=== PATIENT | female | born 1965 | race Caucasian/White ===

== ENCOUNTER 2017-06-03 15:00 | Emergency (ER) | payer MEDICAID, OTHER ==
[~2017-06-03] VITALS: Ht 162.6 cm; Wt 64.0 kg
[~2017-06-03 15:00] MED LIST: BENZ1TAB7 PO; CALC-696 PO; CHOL100046 PO; DIVA500T PO; DOCU-138 PO; FOLI-43 PO; HYDR50CA PO; LEVO25TA7 PO; LOPE2CAP PO; MAGN800O PO; PANT40TA4 PO; POLY250017 PO; PRAV10TA35 PO; QUET300T19 PO; TRAZ-129 PO; ZIPR40CA2 PO
[2017-06-03 17:20] VITALS: BP 99/50
== END 2017-06-03 19:43 | disposition home or self-care (01) ==
LOC: ER 15:00
DX: R60.9 Edema, unspecified (principal)
CPT/HCPCS: 93971; 99284

== ENCOUNTER 2018-02-13 12:08 | Emergency (ER) | payer OTHER ==
[~2018-02-13] VITALS: Ht 165.1 cm; Wt 63.0 kg
[~2018-02-13 12:08] MED LIST changes: -LOPE2CAP PO
[2018-02-13 13:49] LABS: CLARITY URINE CLOUDY (CLEAR); COLOR URINE YELLOW (YELLOW); KETONES URINE NEGATIVE (NEGATIVE); LEUKOCYTE ESTERASE URINE 3+ (NEGATIVE); NITRITE URINE POSITIVE (NEGATIVE); OCCULT BLOOD URINE TRACE (NEGATIVE); PH URINE 6.5 (4.5-8.0); PROTEIN URINE NEGATIVE (NEGATIVE); SPECIFIC GRAVITY URINE 1.018 (1.005-1.030); UROBILINOGEN URINE 0.2 E.U./dL (0.2-1.0)
[2018-02-13 14:11] LABS: BASOPHILS % 0.3 % (0.0-2.0); EOSINOPHILS % 0.4 % (0.0-5.0); HEMATOCRIT. 28.7 % (36.0-48.0); HEMOGLOBIN. 9.3 g/dL (12.0-16.0); LYMPHOCYTES % 27.6 % (20.0-50.0); MEAN CORPUSCULAR HEMOGLOBIN 24.9 pg (28.0-32.0); MEAN CORPUSCULAR VOLUME 77.2 fL (81.0-99.0); MEAN PLATELET VOLUME 9.2 fl (7.4-10.4); NEUTROPHILS % 62.7 % (40.0-76.0); PLATELET 216 x1000/uL (130-400); RED BLOOD CELL COUNT 3.72 mill/uL (4.2-5.4); RED CELL DISTRIBUTION WIDTH 15.8 % (11.6-14.6)
[2018-02-13 14:12] LABS: CHLORIDE 96 mEq/L (98-107)
[2018-02-13 14:14] LABS: PROTHROMBIN TIME 10.5 sec (9.4-11.6)
[2018-02-13 14:16] LABS: ETHANOL BLOOD < 10 mg/dL
[2018-02-13 14:16] LABS: *AMPHETAMINES SCREEN URINE NEGATIVE (NEGATIVE); *BARBITURATES SCREEN URINE NEGATIVE (NEGATIVE); *BENZODIAZEPINES SCREEN URINE NEGATIVE (NEGATIVE); *COCAINE SCREEN URINE NEGATIVE (NEGATIVE); METHADONE URINE SCREEN NEGATIVE (NEGATIVE); OPIATES URINE SCREEN NEGATIVE (NEGATIVE)
[2018-02-13 14:18] LABS: PHENCYCLIDINE URINE SCREEN NEGATIVE (NEGATIVE)
[2018-02-13 14:26] LABS: CANNABINOID URINE SCREEN NEGATIVE (NEGATIVE)
[2018-02-13 14:47] VITALS: BP 101/64
== END 2018-02-13 15:01 | disposition home or self-care (01) ==
LOC: ER 13:03
DX: S30.811A Abrasion of abdominal wall, initial encounter (principal); S50.812A Abrasion of left forearm, initial encounter; S50.811A Abrasion of right forearm, initial encounter; F84.0 Autistic disorder; F78 Other intellectual disabilities; N30.00 Acute cystitis without hematuria; Y33.XXXA Other specified events, undetermined intent, initial encounter; Y93.89 Activity, other specified; Y92.89 Other specified places as the place of occurrence of the external cause; Y99.8 Other external cause status; Z98.890 Other specified postprocedural states
CPT/HCPCS: 36415; 80053; 80305; 80307; 80329; 81003; 82962; 85025; 85610; 87077; 87086; 87186; 99284; G0482; Z7610

== ENCOUNTER 2018-02-22 01:15 | Emergency (ER) | payer OTHER ==
[~2018-02-22] VITALS: Ht 167.6 cm; Wt 54.0 kg
[2018-02-22] MEDS ORDERED: LORAZEPAM 2MG/ML CPJ IV ONE (02:45)
[2018-02-22 03:20] LABS: BASOPHILS % 0.2 % (0.0-2.0); EOSINOPHILS % 0.5 % (0.0-5.0); HEMATOCRIT. 30.2 % (36.0-48.0); HEMOGLOBIN. 9.7 g/dL (12.0-16.0); LYMPHOCYTES % 23.4 % (20.0-50.0); MEAN CORPUSCULAR HEMOGLOBIN 24.8 pg (28.0-32.0); MEAN CORPUSCULAR VOLUME 77.3 fL (81.0-99.0); MEAN PLATELET VOLUME 8.6 fl (7.4-10.4); MONOCYTES % 14.3 % (2.0-8.0); NEUTROPHILS % 61.6 % (40.0-76.0); PLATELET 218 x1000/uL (130-400); RED BLOOD CELL COUNT 3.91 mill/uL (4.2-5.4); RED CELL DISTRIBUTION WIDTH 16.1 % (11.6-14.6)
[2018-02-22 03:25] LABS: PROTHROMBIN TIME 10.4 sec (9.4-11.6)
[2018-02-22 03:26] LABS: CHLORIDE 103 mEq/L (98-107)
[2018-02-22 03:33] LABS: ETHANOL BLOOD < 10 mg/dL
[2018-02-22 04:09] LABS: CLARITY URINE CLEAR (CLEAR); COLOR URINE YELLOW (YELLOW); KETONES URINE NEGATIVE (NEGATIVE); LEUKOCYTE ESTERASE URINE NEGATIVE (NEGATIVE); NITRITE URINE NEGATIVE (NEGATIVE); OCCULT BLOOD URINE NEGATIVE (NEGATIVE); PH URINE 7.5 (4.5-8.0); PROTEIN URINE NEGATIVE (NEGATIVE); SPECIFIC GRAVITY URINE 1.013 (1.005-1.030); UROBILINOGEN URINE 0.2 E.U./dL (0.2-1.0)
[2018-02-22 04:18] LABS: *AMPHETAMINES SCREEN URINE NEGATIVE (NEGATIVE); *BARBITURATES SCREEN URINE NEGATIVE (NEGATIVE); *BENZODIAZEPINES SCREEN URINE NEGATIVE (NEGATIVE); *COCAINE SCREEN URINE NEGATIVE (NEGATIVE)
[2018-02-22 04:19] LABS: CANNABINOID URINE SCREEN NEGATIVE (NEGATIVE); METHADONE URINE SCREEN NEGATIVE (NEGATIVE); OPIATES URINE SCREEN NEGATIVE (NEGATIVE); PHENCYCLIDINE URINE SCREEN NEGATIVE (NEGATIVE)
[2018-02-22 17:56] VITALS: BP 102/95
== END 2018-02-22 18:15 | disposition home or self-care (01) ==
LOC: ER 01:15
DX: S50.812A Abrasion of left forearm, initial encounter (principal); S50.811A Abrasion of right forearm, initial encounter; R22.0 Localized swelling, mass and lump, head; F29 Unspecified psychosis not due to a substance or known physiological condition; F84.0 Autistic disorder; F79 Unspecified intellectual disabilities; R00.0 Tachycardia, unspecified; K44.9 Diaphragmatic hernia without obstruction or gangrene; X83.8XXA Intentional self-harm by other specified means, initial encounter; Y92.018 Other place in single-family (private) house as the place of occurrence of the external cause
CPT/HCPCS: 36415; 70450; 71045; 80053; 80305; 80307; 80329; 81003; 85025; 85610; 93005; 96374; 99285; C1893; G0482; J2060; Z7610

== ENCOUNTER 2018-05-02 15:10 | Emergency (ER) | payer OTHER ==
[~2018-05-02] VITALS: Ht 160 cm; Wt 50.0 kg
[2018-05-02] MEDS ORDERED: LORAZEPAM 2MG/ML CPJ IM ONE (18:30)
[2018-05-02 20:33] VITALS: BP 130/70
== END 2018-05-03 08:24 | disposition home or self-care (01) ==
LOC: ER 05-03 07:46
DX: S00.83XA Contusion of other part of head, initial encounter (principal); E03.9 Hypothyroidism, unspecified; F84.0 Autistic disorder; W22.01XA Walked into wall, initial encounter; Y93.89 Activity, other specified; Y92.018 Other place in single-family (private) house as the place of occurrence of the external cause
CPT/HCPCS: 70450; 96372; 99284; J2060

== ENCOUNTER 2018-05-12 16:06 | Emergency (ER) | payer OTHER ==
[~2018-05-12] VITALS: Ht 152.4 cm; Wt 54.0 kg
[~2018-05-12 16:06] MED LIST changes: +DIVA-75 PO; -DIVA500T PO; -TRAZ-129 PO; +TRAZ-212 PO
[2018-05-12 21:46] VITALS: BP 112/60
== END 2018-05-12 21:56 | disposition home or self-care (01) ==
LOC: ER 16:06
DX: S00.83XA Contusion of other part of head, initial encounter (principal); S00.03XA Contusion of scalp, initial encounter; W06.XXXA Fall from bed, initial encounter; Y93.89 Activity, other specified; Y92.9 Unspecified place or not applicable; E03.9 Hypothyroidism, unspecified
CPT/HCPCS: 70450; 70486; 99284

== ENCOUNTER 2019-07-14 10:07 | Emergency (ER) | payer MEDICAID, OTHER ==
[~2019-07-14] VITALS: Ht 152.4 cm; Wt 41.0 kg
[~2019-07-14 10:07] MED LIST changes: -TRAZ-212 PO; +TRAZ-251 PO
[2019-07-14 11:21] LABS: PROTHROMBIN TIME 10.2 sec (9.6-11.0)
[2019-07-14 11:22] LABS: CHLORIDE 96 mEq/L (98-107)
[2019-07-14 11:23] LABS: BASOPHILS % 0.2 % (0.0-2.0); EOSINOPHILS % 0.8 % (0.0-5.0); HEMATOCRIT. 39.3 % (36.0-48.0); HEMOGLOBIN. 12.9 g/dL (12.0-16.0); LYMPHOCYTES % 38.9 % (20.0-50.0); MEAN CORPUSCULAR HEMOGLOBIN 26.3 pg (28.0-32.0); MONOCYTES % 10.7 % (2.0-8.0); NEUTROPHILS % 49.4 % (40.0-76.0); RED BLOOD CELL COUNT 4.92 mill/uL (4.2-5.4); RED CELL DISTRIBUTION WIDTH 30.9 % (11.6-14.6)
[2019-07-14 11:43] LABS: MEAN PLATELET VOLUME 9.8 fl (7.4-10.4); PLATELET 95 x1000/uL (130-400)
[2019-07-14] MEDS ORDERED: SODIUM CHLORIDE 0.9% 1,000 ML IV ONE (12:45)
[2019-07-14 13:03] LABS: CLARITY URINE CLEAR (CLEAR); COLOR URINE YELLOW (YELLOW); KETONES URINE NEGATIVE (NEGATIVE); LEUKOCYTE ESTERASE URINE NEGATIVE (NEGATIVE); NITRITE URINE NEGATIVE (NEGATIVE); OCCULT BLOOD URINE NEGATIVE (NEGATIVE); PH URINE >=9.0 (4.5-8.0); PROTEIN URINE NEGATIVE (NEGATIVE); SPECIFIC GRAVITY URINE 1.008 (1.005-1.030); UROBILINOGEN URINE 0.2 E.U./dL (0.2-1.0)
[2019-07-14 13:45] VITALS: BP 125/69
[2019-07-25] MEDS ORDERED: DIVA500T51 PO (19:16)
[2019-07-25] MEDS ORDERED: LORA1TAB PO (19:16)
[2019-07-25] MEDS ORDERED: DIVA250T45 PO (19:16)
[2019-07-25] MEDS ORDERED: OMEP20CA5 PO (19:16)
[2019-07-25] MEDS ORDERED: HYDR-3992 PO (19:16)
[2019-07-25] MEDS ORDERED: ONDA4TAB50 PO (19:16)
[2019-07-25] MEDS ORDERED: DOCU-272 PO (19:16)
[2019-07-25] MEDS ORDERED: LOPE2CAP PO (19:16)
[2019-07-25] MEDS ORDERED: QUET25TA34 PO (19:16)
[2019-07-25] MEDS ORDERED: CARI4.5C PO (19:16)
== END 2019-07-14 13:50 | disposition home or self-care (01) ==
LOC: ER 10:07
DX: R14.0 Abdominal distension (gaseous) (principal); E86.0 Dehydration; E87.1 Hypo-osmolality and hyponatremia; E03.9 Hypothyroidism, unspecified; R62.50 Unspecified lack of expected normal physiological development in childhood; G83.9 Paralytic syndrome, unspecified; M41.9 Scoliosis, unspecified; F84.0 Autistic disorder; Z99.3 Dependence on wheelchair; Z74.01 Bed confinement status
CPT/HCPCS: 36415; 81003; 81025; 99283

== ENCOUNTER → 2019-07-26 | Day surgery (SDC) | payer MEDICAID ==
[~2019-07-26] VITALS: Ht 154.9 cm; Wt 54.4 kg
[~2019-07-26] MED LIST changes: +CARI4.5C PO; -DIVA-75 PO; +DIVA250T45 PO; +DIVA500T51 PO; -DOCU-138 PO; +DOCU-272 PO; +HYDR-3992 PO; +LIDOCAINE HCL/PF 1% 10 MG/ML 5ML VIAL ONE; +LOPE2CAP PO; +LORA1TAB PO; +OMEP20CA5 PO; +ONDA4TAB50 PO; +PROPOFOL 200MG/20ML VIAL IV ONE; +QUET25TA34 PO; -ZIPR40CA2 PO
[2019-07-26 11:54] LABS: BASOPHILS % 0.3 % (0.0-2.0); EOSINOPHILS % 0.9 % (0.0-5.0); HEMATOCRIT. 40.2 % (36.0-48.0); HEMOGLOBIN. 13.4 g/dL (12.0-16.0); LYMPHOCYTES % 39.2 % (20.0-50.0); MEAN CORPUSCULAR HEMOGLOBIN 27.6 pg (28.0-32.0); MEAN CORPUSCULAR VOLUME 82.9 fL (81.0-99.0); MEAN PLATELET VOLUME 9.4 fl (7.4-10.4); MONOCYTES % 11.1 % (2.0-8.0); NEUTROPHILS % 48.5 % (40.0-76.0); PLATELET 113 x1000/uL (130-400); RED BLOOD CELL COUNT 4.85 mill/uL (4.2-5.4); RED CELL DISTRIBUTION WIDTH 26.2 % (11.6-14.6)
[2019-07-26 12:08] LABS: CHLORIDE 96 mEq/L (98-107)
== END | disposition home or self-care (01) ==
LOC: OR 09:24
PROVIDERS: ATTEND Internal Medicine Gastroenterology
DX: D50.9 Iron deficiency anemia, unspecified (principal); K29.50 Unspecified chronic gastritis without bleeding; K44.9 Diaphragmatic hernia without obstruction or gangrene; K22.10 Ulcer of esophagus without bleeding; M40.294 Other kyphosis, thoracic region; E03.9 Hypothyroidism, unspecified; Z79.899 Other long term (current) drug therapy; Z98.890 Other specified postprocedural states
CPT/HCPCS: 36415; 43239; 71045; 80048; 85025; 88305; 88313; 93005; J2704; J3490

== ENCOUNTER 2020-09-26 17:54 | Emergency (ER) | payer MEDICAID ==
[~2020-09-26] VITALS: Ht 167.6 cm; Wt 69.0 kg
[~2020-09-26 17:54] MED LIST changes: -LIDOCAINE HCL/PF 1% 10 MG/ML 5ML VIAL ONE; +OMEP20CA14 PO; -OMEP20CA5 PO; -PROPOFOL 200MG/20ML VIAL IV ONE
[2020-09-26 18:13] VITALS: BP 131/79
[2020-09-26] MEDS ORDERED: BACITRACIN ZINC OINT UDPKT TOP ONE (20:15)
== END 2020-09-26 22:54 | disposition home or self-care (01) ==
LOC: ER 17:54
DX: S00.83XA Contusion of other part of head, initial encounter (principal); S00.01XA Abrasion of scalp, initial encounter; F79 Unspecified intellectual disabilities; E03.9 Hypothyroidism, unspecified; R47.01 Aphasia; W05.0XXA Fall from non-moving wheelchair, initial encounter; Y93.89 Activity, other specified; Y92.018 Other place in single-family (private) house as the place of occurrence of the external cause
CPT/HCPCS: 99285

== ENCOUNTER 2020-11-19 19:06 | Emergency (ER) | payer MEDICAID ==
[~2020-11-19] VITALS: Ht 154.9 cm; Wt 46.0 kg
[~2020-11-19 19:06] MED LIST changes: -PANT40TA4 PO; +PANT40TA51 PO
[2020-11-19 19:27] VITALS: BP 105/62
[2020-11-19] MEDS ORDERED: ONDANSETRON HCL 4MG/2ML INJ IV STA (20:16)
[2020-11-19] MEDS ORDERED: SODIUM CHLORIDE 0.9% 1,000 ML IV ONE (20:30)
[2020-11-19 21:03] LABS: BASOPHILS % 0.4 % (0.0-2.0); EOSINOPHILS % 1.2 % (0.0-5.0); HEMOGLOBIN. 11.2 g/dL (12.0-16.0); MEAN PLATELET VOLUME 10.3 fl (7.4-10.4); MONOCYTES % 11.5 % (2.0-8.0); NEUTROPHILS % 38.9 % (40.0-76.0); PLATELET 239 x1000/uL (130-400); RED CELL DISTRIBUTION WIDTH 16.8 % (11.6-14.6)
[2020-11-19 21:07] LABS: CHLORIDE 104 mEq/L (98-107)
[2020-11-19] MEDS ORDERED: MAGNESIUM CITRATE 300ML SOLUTION PO ONE (21:30)
[2020-11-19] MEDS ORDERED: NA P133E8 RC (22:10)
[2020-11-19] MEDS ORDERED: BISA10SU62 RC (22:11)
[2020-11-19] MEDS ORDERED: NA PHOS,M-B/NA PHOS,DI-BA ENEMA 118ML PR NR (22:30)
[2020-11-23] MEDS ORDERED: LACT10SO MT (00:47)
== END 2020-11-19 23:08 | disposition home or self-care (01) ==
LOC: ER 19:06
DX: K59.00 Constipation, unspecified (principal); M41.9 Scoliosis, unspecified; F79 Unspecified intellectual disabilities; F84.0 Autistic disorder; E03.9 Hypothyroidism, unspecified; Z87.19 Personal history of other diseases of the digestive system
CPT/HCPCS: 36415; 74018; 80053; 83690; 85025; 96361; 96374; 99284; J2405; J7030; Z7610

== ENCOUNTER 2020-11-22 20:03 | Emergency (ER) | payer MEDICAID ==
[~2020-11-22] VITALS: Ht 142.2 cm; Wt 43.0 kg
[~2020-11-22 20:03] MED LIST changes: +BISA10SU62 RC; +NA P133E8 RC
[2020-11-22] MEDS ORDERED: ONDANSETRON HCL 4MG/2ML INJ IV STA (21:40)
[2020-11-22] MEDS ORDERED: SODIUM CHLORIDE 0.9% 1,000 ML IV ONE (21:45)
[2020-11-22 22:33] LABS: BASOPHILS % 0.5 % (0.0-2.0); EOSINOPHILS % 0.8 % (0.0-5.0); HEMATOCRIT. 36.8 % (36.0-48.0); HEMOGLOBIN. 11.8 g/dL (12.0-16.0); LYMPHOCYTES % 29.5 % (20.0-50.0); MEAN CORPUSCULAR HEMOGLOBIN 25.3 pg (28.0-32.0); MEAN CORPUSCULAR VOLUME 78.9 fL (81.0-99.0); MEAN PLATELET VOLUME 10.3 fl (7.4-10.4); MONOCYTES % 8.7 % (2.0-8.0); NEUTROPHILS % 60.5 % (40.0-76.0); PLATELET 231 x1000/uL (130-400); RED BLOOD CELL COUNT 4.66 mill/uL (4.2-5.4); RED CELL DISTRIBUTION WIDTH 17.1 % (11.6-14.6)
[2020-11-22 22:36] LABS: CHLORIDE 101 mEq/L (98-107)
[2020-11-22 22:39] LABS: PROTHROMBIN TIME 10.4 sec (9.6-11.0)
[2020-11-22] MEDS ORDERED: IOHEXOL-300 100 ML BOTTLE ONE (23:26)
[2020-11-23] MEDS ORDERED: PANTOPRAZOLE SODIUM 40 MG/VIAL IV ONE (00:45)
[2020-11-23] MEDS ORDERED: PROT40 MT (00:46)
[2020-11-23] MEDS ORDERED: LACT10SO3 MT (00:47)
[2020-11-23] MEDS ORDERED: LACTULOSE 20G/30ML UDC PO NR (01:00)
[2020-11-23 01:45] LABS: CLARITY URINE CLEAR (CLEAR); COLOR URINE YELLOW (YELLOW); KETONES URINE 1+ (NEGATIVE); LEUKOCYTE ESTERASE URINE NEGATIVE (NEGATIVE); NITRITE URINE NEGATIVE (NEGATIVE); OCCULT BLOOD URINE 1+ (NEGATIVE); PROTEIN URINE NEGATIVE (NEGATIVE); SPECIFIC GRAVITY URINE 1.037 (1.005-1.030); UROBILINOGEN URINE 0.2 E.U./dL (0.2-1.0)
[2020-11-23 02:17] VITALS: BP 131/45
== END 2020-11-23 02:18 | disposition home or self-care (01) ==
LOC: ER 20:03
DX: K29.70 Gastritis, unspecified, without bleeding (principal); R11.2 Nausea with vomiting, unspecified; Z87.01 Personal history of pneumonia (recurrent); E03.9 Hypothyroidism, unspecified; Z79.899 Other long term (current) drug therapy
CPT/HCPCS: 36415; 74177; 80053; 81003; 83690; 85025; 85610; 96361; 96374; 96375; 99285; C9113; J2405; J7030; Q9967

== ENCOUNTER 2020-11-25 16:13 | Inpatient (IN) | payer MEDICAID, OTHER ==
[~2020-11-25] VITALS: Ht 157.5 cm; Wt 48.5 kg
[~2020-11-25 16:13] MED LIST changes: +LACT10SO3 MT; +PROT40 MT
[2020-11-25 18:25] LABS: BASOPHILS % 0.4 % (0.0-2.0); EOSINOPHILS % 0.1 % (0.0-5.0); HEMATOCRIT. 40.6 % (36.0-48.0); HEMOGLOBIN. 12.7 g/dL (12.0-16.0); LYMPHOCYTES % 16.7 % (20.0-50.0); MEAN CORPUSCULAR HEMOGLOBIN 25.1 pg (28.0-32.0); MEAN CORPUSCULAR VOLUME 80.1 fL (81.0-99.0); MEAN PLATELET VOLUME 11.1 fl (7.4-10.4); MONOCYTES % 6.9 % (2.0-8.0); NEUTROPHILS % 75.9 % (40.0-76.0); PLATELET 246 x1000/uL (130-400); RED BLOOD CELL COUNT 5.06 mill/uL (4.2-5.4)
[2020-11-25 18:34] LABS: PROTHROMBIN TIME 10.6 sec (9.6-11.0)
[2020-11-25 18:35] LABS: CHLORIDE 102 mEq/L (98-107)
[2020-11-25 22:59] LABS: CLARITY URINE CLEAR (CLEAR); COLOR URINE YELLOW (YELLOW); KETONES URINE 4+ (NEGATIVE); LEUKOCYTE ESTERASE URINE TRACE (NEGATIVE); NITRITE URINE NEGATIVE (NEGATIVE); OCCULT BLOOD URINE NEGATIVE (NEGATIVE); PH URINE 5.5 (4.5-8.0); PROTEIN URINE NEGATIVE (NEGATIVE); SPECIFIC GRAVITY URINE 1.039 (1.005-1.030); UROBILINOGEN URINE 0.2 E.U./dL (0.2-1.0)
[2020-11-25] MEDS ORDERED: LACTULOSE 20G/30ML UDC PO ONE (23:15)
[2020-11-25] MEDS ORDERED: LACTULOSE 300 ML in WATER FOR IRRIGATION,STERILE 700 ML IR ONE (23:15)
[2020-11-26] MEDS: ONDANSETRON HCL 4MG/2ML INJ IV PRN ×2 (02:50→11:15)
[2020-11-26] MEDS ORDERED: BISACODYL 10MG SUPP PR ONE (08:30)
[2020-11-26] MEDS ORDERED: ACETAMINOPHEN 325MG TABLET PO PRN (08:30)
[2020-11-26] MEDS ORDERED: PANTOPRAZOLE SODIUM 40 MG/VIAL IV SCH (09:00)
[2020-11-26] MEDS: DEXT 5%/0.9% NACL 1,000 ML IV SCH (17:16)
[2020-11-26 20:35] VITALS: BP 119/79
[2020-11-26] MEDS: SENNOSIDES/DOCUSATE SOD 8.6/50MG TABLET PO SCH (21:00)
[2020-11-26] MEDS: PANTOPRAZOLE SODIUM 40 MG/VIAL IV SCH (21:00)
[2020-11-26] MEDS ORDERED: NA PHOS,M-B/NA PHOS,DI-BA ENEMA 118ML PR NR (21:00)
[2020-11-26] MEDS: TRAZODONE HCL 50MG TABLET PO SCH (23:30)
[2020-11-26] MEDS: QUETIAPINE FUMARATE 50MG TABLET PO SCH (23:30)
[2020-11-26] MEDS: VALPROIC ACID 250MG CAPSULE PO SCH (23:45)
[2020-11-26] MEDS: METOCLOPRAMIDE HCL 10MG/2ML VIAL IV SCH (23:55)
[2020-11-27 04:23] VITALS: BP 119/79
[2020-11-27] MEDS: METOCLOPRAMIDE HCL 10MG/2ML VIAL IV SCH ×2 (06:00→12:00)
[2020-11-27 07:48] LABS: PROTHROMBIN TIME 10.9 sec (9.6-11.0)
[2020-11-27 07:49] LABS: BASOPHILS % 0.1 % (0.0-2.0); EOSINOPHILS % 0.1 % (0.0-5.0); HEMATOCRIT. 40.5 % (36.0-48.0); HEMOGLOBIN. 12.5 g/dL (12.0-16.0); LYMPHOCYTES % 10.6 % (20.0-50.0); MEAN CORPUSCULAR HEMOGLOBIN 24.5 pg (28.0-32.0); MEAN CORPUSCULAR VOLUME 79.6 fL (81.0-99.0); MEAN PLATELET VOLUME 11.1 fl (7.4-10.4); MONOCYTES % 7.6 % (2.0-8.0); NEUTROPHILS % 81.6 % (40.0-76.0); PLATELET 236 x1000/uL (130-400); RED BLOOD CELL COUNT 5.09 mill/uL (4.2-5.4); RED CELL DISTRIBUTION WIDTH 16.6 % (11.6-14.6)
[2020-11-27 07:59] LABS: CHLORIDE 107 mEq/L (98-107)
[2020-11-27 08:00] VITALS: BP 112/73
[2020-11-27] MEDS: BENZTROPINE MESYLATE 1MG TABLET PO SCH ×2 (08:00→16:37)
[2020-11-27] MEDS: QUETIAPINE FUMARATE 50MG TABLET PO SCH ×4 (08:00→22:13)
[2020-11-27] MEDS: PANTOPRAZOLE SODIUM 40 MG/VIAL IV SCH ×2 (09:22→22:29)
[2020-11-27] MEDS: LEVOTHYROXINE SODIUM 25MCG TABLET PO SCH (09:22)
[2020-11-27] MEDS: DOCUSATE SODIUM 250MG CAPSULE PO SCH (09:22)
[2020-11-27] MEDS: BISACODYL 5MG TABLET PO SCH (09:22)
[2020-11-27 12:00] VITALS: BP 126/70
[2020-11-27] MEDS ORDERED: LIDOCAINE HCL 1% 20ML VIAL (Pyxis) INJ ONE (12:17)
[2020-11-27] MEDS ORDERED: SODIUM BICARBONATE 4% (2.4MEQ) 5ML VIAL IV ONE (12:17)
[2020-11-27 16:00] VITALS: BP 124/80
[2020-11-27 20:00] VITALS: BP 134/82
[2020-11-27] MEDS: SENNOSIDES/DOCUSATE SOD 8.6/50MG TABLET PO SCH (22:09)
[2020-11-27] MEDS: TRAZODONE HCL 50MG TABLET PO SCH (22:09)
[2020-11-27] MEDS: VALPROIC ACID 250MG CAPSULE PO SCH (22:10)
[2020-11-28] VITALS: BP 117/81
[2020-11-28 04:00] VITALS: BP 97/70
[2020-11-28 04:54] LABS: BASOPHILS % 0.3 % (0.0-2.0); EOSINOPHILS % 0.6 % (0.0-5.0); HEMATOCRIT. 36.6 % (36.0-48.0); HEMOGLOBIN. 11.2 g/dL (12.0-16.0); LYMPHOCYTES % 22.8 % (20.0-50.0); MEAN CORPUSCULAR HEMOGLOBIN 24.1 pg (28.0-32.0); MEAN CORPUSCULAR VOLUME 78.6 fL (81.0-99.0); NEUTROPHILS % 65.3 % (40.0-76.0); PLATELET 186 x1000/uL (130-400); RED BLOOD CELL COUNT 4.66 mill/uL (4.2-5.4); RED CELL DISTRIBUTION WIDTH 16.7 % (11.6-14.6)
[2020-11-28 04:59] LABS: PROTHROMBIN TIME 11.2 sec (9.6-11.0)
[2020-11-28 05:05] LABS: CHLORIDE 109 mEq/L (98-107)
[2020-11-28 08:00] VITALS: BP 133/79
[2020-11-28] MEDS: BISACODYL 10MG SUPP PR PRN (08:59)
[2020-11-28] MEDS: LEVOTHYROXINE SODIUM 25MCG TABLET PO SCH (08:59)
[2020-11-28] MEDS: DOCUSATE SODIUM 250MG CAPSULE PO SCH (08:59)
[2020-11-28] MEDS: QUETIAPINE FUMARATE 50MG TABLET PO SCH ×4 (08:59→20:55)
[2020-11-28] MEDS: DEXT 5%/0.9% NACL 1,000 ML IV SCH ×2 (09:00→17:39)
[2020-11-28] MEDS: BENZTROPINE MESYLATE 1MG TABLET PO SCH ×2 (09:00→16:00)
[2020-11-28] MEDS: BISACODYL 5MG TABLET PO SCH (09:05)
[2020-11-28] MEDS: PANTOPRAZOLE SODIUM 40 MG/VIAL IV SCH ×2 (09:05→20:55)
[2020-11-28] MEDS ORDERED: POTASSIUM CHLORIDE INJ 40 MEQ in DEXT 5% WATER 500 ML IV SCH (10:00)
[2020-11-28 12:00] VITALS: BP 133/80
[2020-11-28 16:00] VITALS: BP 122/70
[2020-11-28] MEDS ORDERED: MIDAZOLAM HCL 5 MG/5 ML VIAL IV PRN (17:41)
[2020-11-28] MEDS ORDERED: FENTANYL CITRATE/PF 50MCG/ML 2ML VIAL ONE (17:45)
[2020-11-28] MEDS ORDERED: MIDAZOLAM HCL 5 MG/5 ML VIAL ONE (17:45)
[2020-11-28 20:00] VITALS: BP 115/69
[2020-11-28] MEDS: SENNOSIDES/DOCUSATE SOD 8.6/50MG TABLET PO SCH (20:55)
[2020-11-28] MEDS: TRAZODONE HCL 50MG TABLET PO SCH (20:55)
[2020-11-28] MEDS: METOCLOPRAMIDE HCL 10MG/2ML VIAL IV SCH (20:55)
[2020-11-28] MEDS: VALPROIC ACID 250MG CAPSULE PO SCH (20:56)
[2020-11-29] VITALS: BP 119/77
[2020-11-29] MEDS: METOCLOPRAMIDE HCL 10MG/2ML VIAL IV SCH ×4 (00:52→17:53)
[2020-11-29 04:00] VITALS: BP 136/68
[2020-11-29] MEDS: DEXT 5%/0.9% NACL 1,000 ML IV SCH ×2 (04:54→14:30)
[2020-11-29] MEDS: LEVOTHYROXINE SODIUM 25MCG TABLET PO SCH (06:38)
[2020-11-29 08:00] VITALS: BP 120/76
[2020-11-29] MEDS: QUETIAPINE FUMARATE 50MG TABLET PO SCH ×4 (08:00→23:29)
[2020-11-29] MEDS: BENZTROPINE MESYLATE 1MG TABLET PO SCH ×2 (08:00→16:00)
[2020-11-29] MEDS: BISACODYL 5MG TABLET PO SCH (09:00)
[2020-11-29] MEDS: DOCUSATE SODIUM 250MG CAPSULE PO SCH (09:00)
[2020-11-29] MEDS: PANTOPRAZOLE SODIUM 40 MG/VIAL IV SCH ×2 (09:31→23:28)
[2020-11-29 12:00] VITALS: BP 132/74
[2020-11-29 16:00] VITALS: BP 126/74
[2020-11-29 20:00] VITALS: BP 121/63
[2020-11-29 20:50] LABS: BASOPHILS % 0.3 % (0.0-2.0); EOSINOPHILS % 1.6 % (0.0-5.0); HEMATOCRIT. 31.9 % (36.0-48.0); HEMOGLOBIN. 9.9 g/dL (12.0-16.0); LYMPHOCYTES % 38.7 % (20.0-50.0); MEAN CORPUSCULAR HEMOGLOBIN 24.4 pg (28.0-32.0); MEAN CORPUSCULAR VOLUME 78.8 fL (81.0-99.0); MEAN PLATELET VOLUME 11.6 fl (7.4-10.4); MONOCYTES % 10.8 % (2.0-8.0); NEUTROPHILS % 48.6 % (40.0-76.0); PLATELET 144 x1000/uL (130-400); RED BLOOD CELL COUNT 4.05 mill/uL (4.2-5.4); RED CELL DISTRIBUTION WIDTH 16.8 % (11.6-14.6)
[2020-11-29] MEDS: SENNOSIDES/DOCUSATE SOD 8.6/50MG TABLET PO SCH (21:00)
[2020-11-29 21:02] LABS: CHLORIDE 109 mEq/L (98-107)
[2020-11-29] MEDS: TRAZODONE HCL 50MG TABLET PO SCH (23:28)
[2020-11-29] MEDS: VALPROIC ACID 250MG CAPSULE PO SCH (23:28)
[2020-11-30] VITALS: BP 130/80
[2020-11-30] MEDS: METOCLOPRAMIDE HCL 10MG/2ML VIAL IV SCH ×4 (01:01→18:05)
[2020-11-30] MEDS: DEXT 5%/0.9% NACL 1,000 ML IV SCH ×2 (01:02→10:14)
[2020-11-30] MEDS ORDERED: POTASSIUM CHLORIDE INJ 40 MEQ in DEXT 5% WATER 500 ML IV SCH (03:00)
[2020-11-30 04:00] VITALS: BP 131/72
[2020-11-30] MEDS: LEVOTHYROXINE SODIUM 25MCG TABLET PO SCH (07:00)
[2020-11-30 08:00] VITALS: BP 127/73
[2020-11-30] MEDS: QUETIAPINE FUMARATE 50MG TABLET PO SCH ×4 (08:00→20:00)
[2020-11-30] MEDS: BENZTROPINE MESYLATE 1MG TABLET PO SCH ×2 (08:00→16:00)
[2020-11-30] MEDS: DOCUSATE SODIUM 250MG CAPSULE PO SCH (09:00)
[2020-11-30] MEDS: BISACODYL 5MG TABLET PO SCH (09:00)
[2020-11-30] MEDS: BISACODYL 10MG SUPP PR PRN (09:25)
[2020-11-30] MEDS: PANTOPRAZOLE SODIUM 40 MG/VIAL IV SCH ×2 (09:25→22:21)
[2020-11-30 12:00] VITALS: BP 156/80
[2020-11-30 16:00] VITALS: BP 135/75
[2020-11-30] MEDS: VALPROIC ACID 250MG CAPSULE PO SCH (20:00)
[2020-11-30] MEDS: TRAZODONE HCL 50MG TABLET PO SCH (20:00)
[2020-11-30] MEDS: SENNOSIDES/DOCUSATE SOD 8.6/50MG TABLET PO SCH (21:00)
[2020-11-30] MEDS: DEXT 5%/0.45% NACL KCL 20MEQ/L 1,000 ML IV SCH (22:21)
[2020-12-01 04:00] VITALS: BP 145/70
[2020-12-01] MEDS: METOCLOPRAMIDE HCL 10MG/2ML VIAL IV SCH ×3 (05:19→17:46)
[2020-12-01] MEDS: DEXT 5%/0.45% NACL KCL 20MEQ/L 1,000 ML IV SCH ×3 (05:19→21:57)
[2020-12-01] MEDS ORDERED: LIDOCAINE HCL 1% 20ML VIAL (Pyxis) INJ ONE (06:51)
[2020-12-01] MEDS ORDERED: BUPIVACAINE HCL/PF 0.5% (5MG/ML) 10ML ONE ×2 (06:51→06:52)
[2020-12-01] MEDS ORDERED: BACITRACIN 50,000 UNITS/VIAL ONE (06:52)
[2020-12-01] MEDS: LEVOTHYROXINE SODIUM 25MCG TABLET PO SCH (07:00)
[2020-12-01 07:31] LABS: CHLORIDE 103 mEq/L (98-107)
[2020-12-01 07:40] LABS: BASOPHILS % 0.2 % (0.0-2.0); EOSINOPHILS % 1.5 % (0.0-5.0); HEMATOCRIT. 39.4 % (36.0-48.0); HEMOGLOBIN. 12.5 g/dL (12.0-16.0); LYMPHOCYTES % 32.4 % (20.0-50.0); MEAN CORPUSCULAR HEMOGLOBIN 24.8 pg (28.0-32.0); MEAN CORPUSCULAR VOLUME 78.1 fL (81.0-99.0); MEAN PLATELET VOLUME 11.2 fl (7.4-10.4); MONOCYTES % 12.3 % (2.0-8.0); NEUTROPHILS % 53.6 % (40.0-76.0); PLATELET 163 x1000/uL (130-400); RED BLOOD CELL COUNT 5.05 mill/uL (4.2-5.4); RED CELL DISTRIBUTION WIDTH 16.6 % (11.6-14.6)
[2020-12-01] MEDS: BENZTROPINE MESYLATE 1MG TABLET PO SCH ×2 (08:00→16:00)
[2020-12-01] MEDS: QUETIAPINE FUMARATE 50MG TABLET PO SCH ×5 (08:00→20:00)
[2020-12-01] MEDS ORDERED: PROPOFOL 200MG/20ML VIAL IV ONE (08:33)
[2020-12-01] MEDS ORDERED: HYDROMORPHONE HCL/PF 2MG/ML (OR) ONE (08:46)
[2020-12-01] MEDS ORDERED: GLYCOPYRROLATE 0.2 MG/ML 2ML VIAL ONE (08:57)
[2020-12-01] MEDS: BISACODYL 5MG TABLET PO SCH (09:00)
[2020-12-01] MEDS: PANTOPRAZOLE SODIUM 40 MG/VIAL IV SCH ×2 (09:00→21:59)
[2020-12-01] MEDS: DOCUSATE SODIUM 250MG CAPSULE PO SCH (09:00)
[2020-12-01] MEDS ORDERED: ALBUMIN HUMAN 12.5GM/50ML (25%) IV ONE (09:06)
[2020-12-01] MEDS ORDERED: ONDANSETRON HCL 4MG/2ML INJ IV PRN (10:30)
[2020-12-01] MEDS ORDERED: LABETALOL 5MG/ML SYR 20 MG/4 ML SYRINGE IV PRN (10:30)
[2020-12-01] MEDS ORDERED: MEPERIDINE HCL/PF 25MG/ML CPJ IV PRN (10:30)
[2020-12-01] MEDS ORDERED: KCL 20MEQ/100ML PREMIX 100 ML IV ONE (11:00)
[2020-12-01 12:00] VITALS: BP 139/83
[2020-12-01] MEDS: MORPHINE SULFATE 4 MG/ML CPJ (NOT FOR IM USE) IV PRN ×2 (12:55→22:09)
[2020-12-01 16:00] VITALS: BP 143/90
[2020-12-01] MEDS ORDERED: MORPHINE SULFATE 2 MG/ML CPJ (NOT FOR IM USE) IV ONE (18:00)
[2020-12-01 20:00] VITALS: BP 131/89
[2020-12-01] MEDS: VALPROIC ACID 250MG CAPSULE PO SCH (20:00)
[2020-12-01] MEDS: TRAZODONE HCL 50MG TABLET PO SCH (20:00)
[2020-12-01] MEDS: SENNOSIDES/DOCUSATE SOD 8.6/50MG TABLET PO SCH (21:00)
[2020-12-02] VITALS: BP 131/83
[2020-12-02] MEDS: METOCLOPRAMIDE HCL 10MG/2ML VIAL IV SCH ×4 (01:26→18:16)
[2020-12-02 04:00] VITALS: BP 152/85
[2020-12-02] MEDS: LEVOTHYROXINE SODIUM 25MCG TABLET PO SCH (07:00)
[2020-12-02 08:00] VITALS: BP 140/84
[2020-12-02] MEDS: BENZTROPINE MESYLATE 1MG TABLET PO SCH ×2 (08:00→15:55)
[2020-12-02] MEDS: QUETIAPINE FUMARATE 50MG TABLET PO SCH ×3 (08:00→21:17)
[2020-12-02] MEDS: BISACODYL 5MG TABLET PO SCH (09:00)
[2020-12-02] MEDS: DOCUSATE SODIUM 250MG CAPSULE PO SCH (09:00)
[2020-12-02] MEDS: PANTOPRAZOLE SODIUM 40 MG/VIAL IV SCH ×2 (10:32→21:16)
[2020-12-02] MEDS: MORPHINE SULFATE 4 MG/ML CPJ (NOT FOR IM USE) IV PRN ×3 (10:35→21:12)
[2020-12-02 12:00] VITALS: BP 142/82
[2020-12-02] MEDS: DEXT 5%/0.45% NACL KCL 20MEQ/L 1,000 ML IV SCH ×2 (12:47→22:41)
[2020-12-02 16:00] VITALS: BP 114/75
[2020-12-02 20:00] VITALS: BP 122/53
[2020-12-02] MEDS: SENNOSIDES/DOCUSATE SOD 8.6/50MG TABLET PO SCH (21:17)
[2020-12-02] MEDS: VALPROIC ACID 250MG CAPSULE PO SCH (21:17)
[2020-12-02] MEDS: TRAZODONE HCL 50MG TABLET PO SCH (21:17)
[2020-12-03] VITALS: BP 82/52
[2020-12-03] MEDS: METOCLOPRAMIDE HCL 10MG/2ML VIAL IV SCH ×4 (01:45→17:08)
[2020-12-03 04:00] VITALS: BP 137/74
[2020-12-03 05:37] LABS: BASOPHILS % 0.1 % (0.0-2.0); EOSINOPHILS % 0.3 % (0.0-5.0); HEMATOCRIT. 32.7 % (36.0-48.0); HEMOGLOBIN. 10.2 g/dL (12.0-16.0); LYMPHOCYTES % 10.1 % (20.0-50.0); MEAN CORPUSCULAR HEMOGLOBIN 24.5 pg (28.0-32.0); MEAN CORPUSCULAR VOLUME 78.3 fL (81.0-99.0); MONOCYTES % 6.4 % (2.0-8.0); NEUTROPHILS % 83.1 % (40.0-76.0); PLATELET 124 x1000/uL (130-400); RED BLOOD CELL COUNT 4.18 mill/uL (4.2-5.4); RED CELL DISTRIBUTION WIDTH 17.4 % (11.6-14.6)
[2020-12-03 05:48] LABS: CHLORIDE 106 mEq/L (98-107)
[2020-12-03 05:53] LABS: PHOSPHORUS 1.7 mg/dL (2.5-4.9)
[2020-12-03] MEDS: LEVOTHYROXINE SODIUM 25MCG TABLET PO SCH (07:04)
[2020-12-03 08:00] VITALS: BP 119/74
[2020-12-03] MEDS: DEXT 5%/0.45% NACL KCL 20MEQ/L 1,000 ML IV SCH ×2 (08:00→17:08)
[2020-12-03] MEDS: DOCUSATE SODIUM 250MG CAPSULE PO SCH (09:00)
[2020-12-03] MEDS: BISACODYL 5MG TABLET PO SCH (09:00)
[2020-12-03] MEDS: BENZTROPINE MESYLATE 1MG TABLET PO SCH ×2 (09:02→16:00)
[2020-12-03] MEDS: QUETIAPINE FUMARATE 50MG TABLET PO SCH ×4 (09:02→22:45)
[2020-12-03] MEDS: PANTOPRAZOLE SODIUM 40 MG/VIAL IV SCH ×2 (09:03→22:46)
[2020-12-03 12:00] VITALS: BP_SYST 120; BP_SYST 98; BP_DIAS 52; BP_DIAS 69
[2020-12-03] MEDS ORDERED: MAGNESIUM 2 G PREMIX 50 ML IV NR (12:45)
[2020-12-03] MEDS ORDERED: POTASSIUM PHOS,M-BASIC-D-BASIC 20 MMOL in DEXT 5% WATER 243.3333 ML IV NR (13:00)
[2020-12-03] MEDS: MAGNESIUM OXIDE 400MG TABLET JT SCH (13:57)
[2020-12-03] MEDS ORDERED: CALCIUM ACETATE 667MG CAPSULE JT SCH (15:00)
[2020-12-03 16:00] VITALS: BP 98/52
[2020-12-03 20:00] VITALS: BP 121/70
[2020-12-03] MEDS: SENNOSIDES/DOCUSATE SOD 8.6/50MG TABLET PO SCH (22:44)
[2020-12-03] MEDS: VALPROIC ACID 250MG CAPSULE PO SCH (22:45)
[2020-12-03] MEDS: TRAZODONE HCL 50MG TABLET PO SCH (22:45)
[2020-12-04] VITALS: BP 115/62
[2020-12-04 04:00] VITALS: BP 137/77
[2020-12-04] MEDS: DEXT 5%/0.45% NACL KCL 20MEQ/L 1,000 ML IV SCH ×2 (04:00→13:04)
[2020-12-04] MEDS: METOCLOPRAMIDE HCL 10MG/2ML VIAL IV SCH ×4 (06:00→17:04)
[2020-12-04 06:25] LABS: CHLORIDE 101 mEq/L (98-107)
[2020-12-04 06:35] LABS: PHOSPHORUS 3.2 mg/dL (2.5-4.9)
[2020-12-04 07:57] LABS: BASOPHILS % 0.1 % (0.0-2.0); EOSINOPHILS % 0.4 % (0.0-5.0); HEMATOCRIT. 32.8 % (36.0-48.0); HEMOGLOBIN. 10.4 g/dL (12.0-16.0); LYMPHOCYTES % 14.6 % (20.0-50.0); MEAN CORPUSCULAR HEMOGLOBIN 24.3 pg (28.0-32.0); MEAN CORPUSCULAR VOLUME 77.2 fL (81.0-99.0); MEAN PLATELET VOLUME 10.4 fl (7.4-10.4); MONOCYTES % 9.3 % (2.0-8.0); NEUTROPHILS % 75.6 % (40.0-76.0); PLATELET 131 x1000/uL (130-400); RED BLOOD CELL COUNT 4.25 mill/uL (4.2-5.4); RED CELL DISTRIBUTION WIDTH 17.2 % (11.6-14.6)
[2020-12-04 08:00] VITALS: BP 131/76
[2020-12-04] MEDS: PANTOPRAZOLE SODIUM 40 MG/VIAL IV SCH ×2 (08:38→20:37)
[2020-12-04] MEDS: BISACODYL 5MG TABLET PO SCH (08:39)
[2020-12-04] MEDS: DOCUSATE SODIUM 250MG CAPSULE PO SCH (08:39)
[2020-12-04] MEDS: QUETIAPINE FUMARATE 50MG TABLET PO SCH ×4 (08:39→20:32)
[2020-12-04] MEDS: BENZTROPINE MESYLATE 1MG TABLET PO SCH ×2 (08:40→16:58)
[2020-12-04] MEDS: MAGNESIUM OXIDE 400MG TABLET JT SCH (08:40)
[2020-12-04 12:00] VITALS: BP 111/63
[2020-12-04 16:00] VITALS: BP 114/73
[2020-12-04 20:00] VITALS: BP 107/64
[2020-12-04] MEDS: TRAZODONE HCL 50MG TABLET PO SCH (20:33)
[2020-12-04] MEDS: SENNOSIDES/DOCUSATE SOD 8.6/50MG TABLET PO SCH (20:36)
[2020-12-04] MEDS: VALPROIC ACID 250MG CAPSULE PO SCH (20:36)
[2020-12-05] VITALS: BP 102/63
[2020-12-05 04:00] VITALS: BP 121/70
[2020-12-05] MEDS: METOCLOPRAMIDE HCL 10MG/2ML VIAL IV SCH ×4 (05:54→17:19)
[2020-12-05 06:48] LABS: CHLORIDE 103 mEq/L (98-107)
[2020-12-05] MEDS: LEVOTHYROXINE SODIUM 25MCG TABLET PO SCH (06:50)
[2020-12-05 07:03] LABS: BASOPHILS % 0.1 % (0.0-2.0); EOSINOPHILS % 2.5 % (0.0-5.0); HEMATOCRIT. 28.9 % (36.0-48.0); HEMOGLOBIN. 9.2 g/dL (12.0-16.0); LYMPHOCYTES % 20.4 % (20.0-50.0); MEAN CORPUSCULAR HEMOGLOBIN 24.6 pg (28.0-32.0); MEAN CORPUSCULAR VOLUME 77.3 fL (81.0-99.0); MEAN PLATELET VOLUME 10.8 fl (7.4-10.4); MONOCYTES % 10.8 % (2.0-8.0); NEUTROPHILS % 66.2 % (40.0-76.0); PLATELET 142 x1000/uL (130-400); RED BLOOD CELL COUNT 3.74 mill/uL (4.2-5.4)
[2020-12-05 08:00] VITALS: BP 115/74
[2020-12-05] MEDS: MAGNESIUM OXIDE 400MG TABLET JT SCH (08:35)
[2020-12-05] MEDS: BENZTROPINE MESYLATE 1MG TABLET PO SCH ×2 (08:35→16:10)
[2020-12-05] MEDS: BISACODYL 5MG TABLET PO SCH (08:35)
[2020-12-05] MEDS: QUETIAPINE FUMARATE 50MG TABLET PO SCH ×4 (08:35→20:09)
[2020-12-05] MEDS: PANTOPRAZOLE SODIUM 40 MG/VIAL IV SCH ×2 (08:36→20:10)
[2020-12-05] MEDS: DOCUSATE SODIUM 250MG CAPSULE PO SCH (09:00)
[2020-12-05] MEDS: DEXT 5%/0.45% NACL KCL 20MEQ/L 1,000 ML IV SCH ×3 (10:00→20:00)
[2020-12-05 12:00] VITALS: BP 107/72
[2020-12-05] MEDS ORDERED: CALCIUM ACETATE 667MG CAPSULE JT NR (12:00)
[2020-12-05 16:00] VITALS: BP 130/83
[2020-12-05 20:00] VITALS: BP 125/77
[2020-12-05] MEDS: SENNOSIDES/DOCUSATE SOD 8.6/50MG TABLET PO SCH (20:09)
[2020-12-05] MEDS: VALPROIC ACID 250MG CAPSULE PO SCH (20:09)
[2020-12-05] MEDS: TRAZODONE HCL 50MG TABLET PO SCH (20:09)
[2020-12-06] VITALS (7 sets, daily range): BP systolic 114–137; BP diastolic 68–83
[2020-12-06] MEDS: DEXT 5%/0.45% NACL KCL 20MEQ/L 1,000 ML IV SCH ×2 (05:40→15:52)
[2020-12-06] MEDS: METOCLOPRAMIDE HCL 10MG/2ML VIAL IV SCH ×4 (05:40→23:50)
[2020-12-06] MEDS: LEVOTHYROXINE SODIUM 25MCG TABLET PO SCH (06:28)
[2020-12-06] MEDS: BISACODYL 5MG TABLET PO SCH (08:24)
[2020-12-06] MEDS: QUETIAPINE FUMARATE 50MG TABLET PO SCH ×4 (08:25→21:03)
[2020-12-06] MEDS: MAGNESIUM OXIDE 400MG TABLET JT SCH (08:25)
[2020-12-06] MEDS: DOCUSATE SODIUM 250MG CAPSULE PO SCH (08:25)
[2020-12-06] MEDS: BENZTROPINE MESYLATE 1MG TABLET PO SCH ×2 (08:25→17:04)
[2020-12-06] MEDS: PANTOPRAZOLE SODIUM 40 MG/VIAL IV SCH ×3 (09:00→21:04)
[2020-12-06 09:53] LABS: EOSINOPHILS % 0.7 % (0.0-5.0); HEMATOCRIT. 33.5 % (36.0-48.0); HEMOGLOBIN. 10.5 g/dL (12.0-16.0); LYMPHOCYTES % 15.8 % (20.0-50.0); MEAN CORPUSCULAR HEMOGLOBIN 24.3 pg (28.0-32.0); MEAN CORPUSCULAR VOLUME 77.3 fL (81.0-99.0); MEAN PLATELET VOLUME 9.7 fl (7.4-10.4); MONOCYTES % 12.5 % (2.0-8.0); PLATELET 207 x1000/uL (130-400); RED BLOOD CELL COUNT 4.33 mill/uL (4.2-5.4); RED CELL DISTRIBUTION WIDTH 17.3 % (11.6-14.6)
[2020-12-06 10:06] LABS: CHLORIDE 97 mEq/L (98-107)
[2020-12-06 10:14] LABS: PHOSPHORUS 3.6 mg/dL (2.5-4.9)
[2020-12-06] MEDS: VALPROIC ACID 250MG CAPSULE PO SCH (21:04)
[2020-12-06] MEDS: TRAZODONE HCL 50MG TABLET PO SCH (21:04)
[2020-12-06] MEDS: SENNOSIDES/DOCUSATE SOD 8.6/50MG TABLET PO SCH (21:04)
[2020-12-07] VITALS: BP 101/58
[2020-12-07] MEDS: DEXT 5%/0.45% NACL KCL 20MEQ/L 1,000 ML IV SCH ×3 (01:44→22:00)
[2020-12-07 04:00] VITALS: BP 104/59
[2020-12-07] MEDS: METOCLOPRAMIDE HCL 10MG/2ML VIAL IV SCH ×3 (05:29→18:00)
[2020-12-07] MEDS: LEVOTHYROXINE SODIUM 25MCG TABLET PO SCH (06:25)
[2020-12-07 08:00] VITALS: BP 124/75
[2020-12-07] MEDS: PANTOPRAZOLE SODIUM 40 MG/VIAL IV SCH ×2 (09:00→20:17)
[2020-12-07] MEDS: QUETIAPINE FUMARATE 50MG TABLET PO SCH ×4 (09:27→20:15)
[2020-12-07] MEDS: BENZTROPINE MESYLATE 1MG TABLET PO SCH ×2 (09:27→17:39)
[2020-12-07] MEDS: MAGNESIUM OXIDE 400MG TABLET JT SCH (09:27)
[2020-12-07] MEDS: DOCUSATE SODIUM 250MG CAPSULE PO SCH (09:27)
[2020-12-07] MEDS: BISACODYL 5MG TABLET PO SCH (09:29)
[2020-12-07 12:00] VITALS: BP 112/71
[2020-12-07 16:00] VITALS: BP 130/64
[2020-12-07 20:00] VITALS: BP 111/68
[2020-12-07] MEDS: TRAZODONE HCL 50MG TABLET PO SCH (20:15)
[2020-12-07] MEDS: VALPROIC ACID 250MG CAPSULE PO SCH (20:16)
[2020-12-07] MEDS: SENNOSIDES/DOCUSATE SOD 8.6/50MG TABLET PO SCH (20:16)
[2020-12-08] VITALS: BP 100/61
[2020-12-08 04:00] VITALS: BP 106/66
[2020-12-08] MEDS: METOCLOPRAMIDE HCL 10MG/2ML VIAL IV SCH ×5 (05:32→23:50)
[2020-12-08] MEDS: LEVOTHYROXINE SODIUM 25MCG TABLET PO SCH (06:23)
[2020-12-08] MEDS: DEXT 5%/0.45% NACL KCL 20MEQ/L 1,000 ML IV SCH ×2 (07:36→17:19)
[2020-12-08 08:00] VITALS: BP 91/57
[2020-12-08] MEDS: QUETIAPINE FUMARATE 50MG TABLET PO SCH ×5 (08:00→20:31)
[2020-12-08] MEDS: MAGNESIUM OXIDE 400MG TABLET JT SCH (08:50)
[2020-12-08] MEDS: BISACODYL 5MG TABLET PO SCH (08:50)
[2020-12-08] MEDS: BENZTROPINE MESYLATE 1MG TABLET PO SCH ×2 (08:50→16:23)
[2020-12-08] MEDS: DOCUSATE SODIUM 250MG CAPSULE PO SCH (08:50)
[2020-12-08] MEDS: PANTOPRAZOLE SODIUM 40 MG/VIAL IV SCH ×3 (08:50→20:54)
[2020-12-08 12:00] VITALS: BP 103/59
[2020-12-08 16:00] VITALS: BP 104/65
[2020-12-08 20:00] VITALS: BP 90/53
[2020-12-08] MEDS: VALPROIC ACID 250MG CAPSULE PO SCH (20:31)
[2020-12-08] MEDS: SENNOSIDES/DOCUSATE SOD 8.6/50MG TABLET PO SCH (20:31)
[2020-12-08] MEDS: TRAZODONE HCL 50MG TABLET PO SCH (20:31)
[2020-12-09] VITALS: BP 100/64
[2020-12-09 04:00] VITALS: BP 104/59
[2020-12-09] MEDS: DEXT 5%/0.45% NACL KCL 20MEQ/L 1,000 ML IV SCH ×2 (04:00→14:00)
[2020-12-09] MEDS: METOCLOPRAMIDE HCL 10MG/2ML VIAL IV SCH ×3 (06:00→18:00)
[2020-12-09] MEDS: LEVOTHYROXINE SODIUM 25MCG TABLET PO SCH (06:36)
[2020-12-09 08:00] VITALS: BP 97/57
[2020-12-09] MEDS: QUETIAPINE FUMARATE 50MG TABLET PO SCH ×4 (08:00→20:15)
[2020-12-09] MEDS: BENZTROPINE MESYLATE 1MG TABLET PO SCH ×2 (08:56→16:45)
[2020-12-09] MEDS: DOCUSATE SODIUM 250MG CAPSULE PO SCH (08:56)
[2020-12-09] MEDS: MAGNESIUM OXIDE 400MG TABLET JT SCH (08:57)
[2020-12-09] MEDS: BISACODYL 5MG TABLET PO SCH (08:57)
[2020-12-09 12:00] VITALS: BP 101/51
[2020-12-09 16:00] VITALS: BP 100/61
[2020-12-09 20:00] VITALS: BP 95/55
[2020-12-09] MEDS: TRAZODONE HCL 50MG TABLET PO SCH (20:14)
[2020-12-09] MEDS: VALPROIC ACID 250MG CAPSULE PO SCH (20:14)
[2020-12-09] MEDS: SENNOSIDES/DOCUSATE SOD 8.6/50MG TABLET PO SCH (20:14)
[2020-12-09] MEDS: PANTOPRAZOLE SODIUM 40 MG/VIAL IV SCH (20:16)
[2020-12-10] VITALS (7 sets, daily range): BP systolic 87–98; BP diastolic 44–57
[2020-12-10] MEDS: DEXT 5%/0.45% NACL KCL 20MEQ/L 1,000 ML IV SCH
[2020-12-10] MEDS: METOCLOPRAMIDE HCL 10MG/2ML VIAL IV SCH ×2 (05:57)
[2020-12-10] MEDS: LEVOTHYROXINE SODIUM 25MCG TABLET PO SCH (06:29)
[2020-12-10] MEDS: PANTOPRAZOLE SODIUM 40 MG/VIAL IV SCH (09:00)
[2020-12-10] MEDS: BISACODYL 5MG TABLET PO SCH (09:00)
[2020-12-10] MEDS: DOCUSATE SODIUM 250MG CAPSULE PO SCH ×2 (09:00→09:54)
[2020-12-10] MEDS: BENZTROPINE MESYLATE 1MG TABLET PO SCH ×2 (09:53→17:28)
[2020-12-10] MEDS: MAGNESIUM OXIDE 400MG TABLET JT SCH (09:54)
[2020-12-10] MEDS: QUETIAPINE FUMARATE 50MG TABLET PO SCH ×4 (09:59→20:58)
[2020-12-10] MEDS: METOCLOPRAMIDE HCL 10MG TABLET PO SCH ×2 (17:27→23:36)
[2020-12-10] MEDS: VALPROIC ACID 250MG CAPSULE PO SCH (20:58)
[2020-12-10] MEDS: TRAZODONE HCL 50MG TABLET PO SCH (20:58)
[2020-12-10] MEDS: SENNOSIDES/DOCUSATE SOD 8.6/50MG TABLET PO SCH (20:59)
[2020-12-10] MEDS: PANTOPRAZOLE 40MG DR TABLET PO SCH (20:59)
[2020-12-11] VITALS: BP 93/43
[2020-12-11 04:00] VITALS: BP 101/63
[2020-12-11] MEDS: METOCLOPRAMIDE HCL 10MG TABLET PO SCH ×2 (06:06→11:57)
[2020-12-11] MEDS: LEVOTHYROXINE SODIUM 25MCG TABLET PO SCH (06:06)
[2020-12-11 08:00] VITALS: BP 103/60
[2020-12-11] MEDS: BISACODYL 5MG TABLET PO SCH (09:00)
[2020-12-11] MEDS ORDERED: DOCUSATE SODIUM SUGAR FREE 100MG/10ML UDC NG SCH (09:00)
[2020-12-11] MEDS: PANTOPRAZOLE 40MG DR TABLET PO SCH (09:17)
[2020-12-11] MEDS: BENZTROPINE MESYLATE 1MG TABLET PO SCH (09:17)
[2020-12-11] MEDS: QUETIAPINE FUMARATE 50MG TABLET PO SCH ×2 (09:17→11:57)
[2020-12-11] MEDS: MAGNESIUM OXIDE 400MG TABLET JT SCH (09:17)
[2020-12-11 12:00] VITALS: BP 89/51
[2020-12-11] MEDS ORDERED: FAMOTIDINE 20MG TABLET PO SCH (21:00)
== END 2020-12-11 15:33 | disposition home health service (06) | DRG 254 ==
LOC: ER 16:13 → MICUSO 22:16 → 6EST 11-26 15:15 → MICUSO 11-26 15:27 → 6EST 11-26 16:34
PROVIDERS: ADMIT Internal Medicine; ATTEND Internal Medicine
PROC: 05HY33Z Insertion of Infusion Device into Upper Vein, Percutaneous Approach (ICD-10-PCS; 2020-11-27)
PROC: B54NZZA Ultrasonography of Left Upper Extremity Veins, Guidance (ICD-10-PCS; 2020-11-27)
PROC: 0DJ68ZZ Inspection of Stomach, Via Natural or Artificial Opening Endoscopic (ICD-10-PCS; 2020-11-28)
PROC: 0DHA0UZ Insertion of Feeding Device into Jejunum, Open Approach (ICD-10-PCS; principal; 2020-12-01)
DX: K44.0 Diaphragmatic hernia with obstruction, without gangrene (principal); K22.10 Ulcer of esophagus without bleeding; K22.2 Esophageal obstruction; R62.50 Unspecified lack of expected normal physiological development in childhood; E16.2 Hypoglycemia, unspecified; K59.00 Constipation, unspecified; E03.9 Hypothyroidism, unspecified; E46 Unspecified protein-calorie malnutrition; Z20.822 Contact with and (suspected) exposure to COVID-19; E83.39 Other disorders of phosphorus metabolism; E87.1 Hypo-osmolality and hyponatremia; D50.9 Iron deficiency anemia, unspecified; Z79.890 Hormone replacement therapy; Z79.899 Other long term (current) drug therapy; Z68.1 Body mass index [BMI] 19.9 or less, adult; K29.50 Unspecified chronic gastritis without bleeding; E83.42 Hypomagnesemia
CPT/HCPCS: 36415; 71045; 74177; 76937; 80048; 80053; 81003; 82962; 83605; 83735; 84100; 84145; 84484; 85025; 87015; 87045; 87426; 87427; 87449; 93005; 99285; C1725; C1758; C9113; J1170; J2250; J2270; J2405; J2704; J2765; J3010; J3475; J3480; J3490; J7042; J7060; J8597; P9047

== ENCOUNTER 2021-02-06 13:01 | Emergency (ER) | payer MEDICAID ==
[~2021-02-06] VITALS: Ht 162.6 cm; Wt 55.0 kg
[~2021-02-06 13:01] MED LIST changes: -OMEP20CA14 PO
[2021-02-06 15:28] LABS: BASOPHILS % 0.3 % (0.0-2.0); EOSINOPHILS % 4.3 % (0.0-5.0); HEMATOCRIT. 31.5 % (36.0-48.0); LYMPHOCYTES % 22.9 % (20.0-50.0); MEAN CORPUSCULAR HEMOGLOBIN 24.3 pg (28.0-32.0); MEAN CORPUSCULAR VOLUME 76.4 fL (81.0-99.0); MEAN PLATELET VOLUME 10.1 fl (7.4-10.4); MONOCYTES % 11.2 % (2.0-8.0); NEUTROPHILS % 61.3 % (40.0-76.0); PLATELET 197 x1000/uL (130-400); RED BLOOD CELL COUNT 4.12 mill/uL (4.2-5.4); RED CELL DISTRIBUTION WIDTH 17.3 % (11.6-14.6)
[2021-02-06 15:33] LABS: CHLORIDE 98 mEq/L (98-107)
[2021-02-06 17:17] VITALS: BP 97/52
== END 2021-02-06 17:18 | disposition home or self-care (01) ==
LOC: ER 13:01
DX: R05 Cough (principal); E03.9 Hypothyroidism, unspecified; Z93.1 Gastrostomy status; Z87.01 Personal history of pneumonia (recurrent)
CPT/HCPCS: 36415; 71045; 80053; 83880; 84484; 85025; 99284

== ENCOUNTER 2021-02-20 13:37 | Inpatient (IN) | payer MEDICAID ==
[~2021-02-20] VITALS: Ht 154.9 cm; Wt 54.0 kg
[2021-02-20] MEDS ORDERED: SODIUM CHLORIDE 0.9% 1,000 ML IV ONE (16:30)
[2021-02-20 16:52] LABS: BASOPHILS % 0.2 % (0.0-2.0); EOSINOPHILS % 4.3 % (0.0-5.0); HEMATOCRIT. 32.6 % (36.0-48.0); HEMOGLOBIN. 10.3 g/dL (12.0-16.0); LYMPHOCYTES % 24.2 % (20.0-50.0); MEAN CORPUSCULAR HEMOGLOBIN 24.3 pg (28.0-32.0); MEAN CORPUSCULAR VOLUME 76.9 fL (81.0-99.0); MEAN PLATELET VOLUME 10.6 fl (7.4-10.4); MONOCYTES % 10.2 % (2.0-8.0); NEUTROPHILS % 61.1 % (40.0-76.0); PLATELET 200 x1000/uL (130-400); RED BLOOD CELL COUNT 4.24 mill/uL (4.2-5.4); RED CELL DISTRIBUTION WIDTH 17.5 % (11.6-14.6)
[2021-02-20 17:00] LABS: CHLORIDE 101 mEq/L (98-107)
[2021-02-20 20:09] LABS: CLARITY URINE CLEAR (CLEAR); COLOR URINE YELLOW (YELLOW); KETONES URINE NEGATIVE (NEGATIVE); LEUKOCYTE ESTERASE URINE NEGATIVE (NEGATIVE); NITRITE URINE NEGATIVE (NEGATIVE); OCCULT BLOOD URINE NEGATIVE (NEGATIVE); PROTEIN URINE NEGATIVE (NEGATIVE); SPECIFIC GRAVITY URINE 1.007 (1.005-1.030)
[2021-02-20] MEDS ORDERED: ONDANSETRON HCL 4MG/2ML INJ IV PRN (23:15)
[2021-02-21] MEDS: ENOXAPARIN 40MG/0.4ML SYR SUBCUT SCH ×2 (01:10→21:44)
[2021-02-21] MEDS: LORAZEPAM 2MG/ML CPJ IV PRN ×2 (01:10→14:03)
[2021-02-21] MEDS: SODIUM CHLORIDE 0.9% 1,000 ML IV SCH ×2 (01:11→09:23)
[2021-02-21 03:30] VITALS: BP 115/75
[2021-02-21 04:00] VITALS: BP 115/75
[2021-02-21 08:00] VITALS: BP 93/54
[2021-02-21 09:00] LABS: BASOPHILS % 0.3 % (0.0-2.0); CHLORIDE 101 mEq/L (98-107); EOSINOPHILS % 2.2 % (0.0-5.0); HEMATOCRIT. 31.1 % (36.0-48.0); LYMPHOCYTES % 23.6 % (20.0-50.0); MEAN CORPUSCULAR HEMOGLOBIN 24.5 pg (28.0-32.0); MEAN CORPUSCULAR VOLUME 76.2 fL (81.0-99.0); MEAN PLATELET VOLUME 10.3 fl (7.4-10.4); MONOCYTES % 10.3 % (2.0-8.0); NEUTROPHILS % 63.6 % (40.0-76.0); PLATELET 221 x1000/uL (130-400); RED BLOOD CELL COUNT 4.09 mill/uL (4.2-5.4); RED CELL DISTRIBUTION WIDTH 17.5 % (11.6-14.6)
[2021-02-21 12:00] VITALS: BP 109/60
[2021-02-21] MEDS ORDERED: DIATR MEGLU/DIATRIZOATE SOLN 30ML ONE (12:56)
[2021-02-21] MEDS ORDERED: IOHEXOL-300 50 ML BOTTLE IV ONE (14:19)
[2021-02-21] MEDS ORDERED: LIDOCAINE HCL 2% JELLY 5ML ONE (14:19)
[2021-02-21] MEDS ORDERED: LIDOCAINE HCL 1% 20ML VIAL (Pyxis) INJ ONE (14:47)
[2021-02-21 16:00] VITALS: BP 114/62
[2021-02-21 20:00] VITALS: BP 103/62
[2021-02-21] MEDS: CALCIUM CARBONATE 1250MG TABLET (500MG ELEMENTAL CALCIUM) PO SCH (20:18)
[2021-02-21] MEDS: QUETIAPINE FUMARATE 25MG TABLET PO SCH (20:19)
[2021-02-21] MEDS: PANTOPRAZOLE SODIUM 40 MG/VIAL IV SCH (20:19)
[2021-02-21] MEDS: BENZTROPINE MESYLATE 1MG TABLET PO SCH (20:19)
[2021-02-21] MEDS ORDERED: DIVALPROEX SODIUM 500MG ER TABLET PO SCH (21:00)
[2021-02-21] MEDS ORDERED: TRAZODONE HCL 50MG TABLET PO SCH (21:00)
[2021-02-21] MEDS ORDERED: CEFEPIME HCL 1000MG/VIAL INJ IM SCH (21:00)
[2021-02-21] MEDS ORDERED: DIVALPROEX SODIUM 250MG ER TABLET PO SCH (21:00)
[2021-02-21] MEDS: CEFEPIME 1,000 MG in DEXTROSE 5% WATER 50 ML IV SCH (21:44)
[2021-02-22] VITALS: BP 111/70
[2021-02-22] MEDS: IPRATROPIUM/ALBUTEROL 0.5-3(2.5)MG/3ML NEB HHN SCH ×2 (03:10→10:30)
[2021-02-22 04:00] VITALS: BP 102/61
[2021-02-22 07:45] LABS: BASOPHILS % 0.3 % (0.0-2.0); EOSINOPHILS % 1.9 % (0.0-5.0); HEMATOCRIT. 31.6 % (36.0-48.0); HEMOGLOBIN. 10.1 g/dL (12.0-16.0); MEAN CORPUSCULAR HEMOGLOBIN 24.1 pg (28.0-32.0); MEAN CORPUSCULAR VOLUME 75.9 fL (81.0-99.0); MONOCYTES % 11.5 % (2.0-8.0); NEUTROPHILS % 53.3 % (40.0-76.0); PLATELET 203 x1000/uL (130-400); RED BLOOD CELL COUNT 4.17 mill/uL (4.2-5.4); RED CELL DISTRIBUTION WIDTH 17.4 % (11.6-14.6)
[2021-02-22 07:57] LABS: CHLORIDE 105 mEq/L (98-107)
[2021-02-22 08:00] VITALS: BP 102/52
[2021-02-22] MEDS ORDERED: FOLIC ACID 1MG TABLET PO SCH (09:00)
[2021-02-22] MEDS ORDERED: LEVOTHYROXINE SODIUM 25MCG TABLET PO SCH (09:00)
[2021-02-22] MEDS: QUETIAPINE FUMARATE 25MG TABLET PO SCH ×3 (09:31→17:41)
[2021-02-22] MEDS: BENZTROPINE MESYLATE 1MG TABLET PO SCH ×2 (09:31→17:41)
[2021-02-22] MEDS: CALCIUM CARBONATE 1250MG TABLET (500MG ELEMENTAL CALCIUM) PO SCH ×2 (09:31→17:41)
[2021-02-22] MEDS: PANTOPRAZOLE SODIUM 40 MG/VIAL IV SCH (09:31)
[2021-02-22] MEDS: CEFEPIME 1,000 MG in DEXTROSE 5% WATER 50 ML IV SCH (09:32)
[2021-02-22 12:00] VITALS: BP 87/49
[2021-02-22 16:00] VITALS: BP 91/49
[2021-02-22] MEDS: LORAZEPAM 2MG/ML CPJ IV PRN (17:41)
[2021-02-22 18:50] VITALS: BP 91/49
[2021-02-23] MEDS ORDERED: LEVOTHYROXINE SODIUM 25MCG TABLET PO SCH (07:20)
== END 2021-02-22 19:45 | disposition home health service (06) | DRG 252 ==
LOC: ER 13:37 → 6EST 18:40 → EDBEDREQTM 18:45 → EDBEDREQ 18:45 → EDBEDREQSVC 18:46 → ENRESERV 21:49
PROVIDERS: ADMIT Internal Medicine; ATTEND Internal Medicine
PROC: 0D20XUZ Change Feeding Device in Upper Intestinal Tract, External Approach (ICD-10-PCS; principal; 2021-02-21)
DX: K94.13 Enterostomy malfunction (principal); J69.0 Pneumonitis due to inhalation of food and vomit; E43 Unspecified severe protein-calorie malnutrition; E22.2 Syndrome of inappropriate secretion of antidiuretic hormone; K22.2 Esophageal obstruction; Y73.8 Miscellaneous gastroenterology and urology devices associated with adverse incidents, not elsewhere classified; R62.50 Unspecified lack of expected normal physiological development in childhood; K46.9 Unspecified abdominal hernia without obstruction or gangrene; E03.9 Hypothyroidism, unspecified; Y92.89 Other specified places as the place of occurrence of the external cause; Z79.899 Other long term (current) drug therapy; Z68.22 Body mass index [BMI] 22.0-22.9, adult; Z20.822 Contact with and (suspected) exposure to COVID-19; E16.2 Hypoglycemia, unspecified
CPT/HCPCS: 36415; 36598; 49450; 71045; 80048; 80053; 81003; 82962; 85025; 87426; 93005; 94640; 97166; 99285; C1725; C1769; C1893; C9113; J0692; J1650; J2060; J2405; J3490; J7030; J7040; J7060; Q9963; Q9967; A4315

== ENCOUNTER 2021-03-05 10:03 | Emergency (ER) | payer MEDICAID ==
[~2021-03-05] VITALS: Ht 167.6 cm; Wt 48.0 kg
[2021-03-05] MEDS ORDERED: LIDOCAINE HCL 1% 20ML VIAL (Pyxis) INJ ONE (13:44)
[2021-03-05] MEDS ORDERED: LIDOCAINE HCL 2% JELLY 5ML ONE (13:44)
[2021-03-05] MEDS ORDERED: IOHEXOL-300 50 ML BOTTLE IV ONE (13:44)
[2021-03-05 16:00] VITALS: BP 121/61
== END 2021-03-05 16:33 | disposition home or self-care (01) ==
LOC: ER 10:03
DX: K94.23 Gastrostomy malfunction (principal); Z98.890 Other specified postprocedural states; Z86.39 Personal history of other endocrine, nutritional and metabolic disease; Z79.899 Other long term (current) drug therapy
CPT/HCPCS: 36598; 49450; 99285; C1769; J3490; Q9967; Z7610

== ENCOUNTER 2021-03-10 19:59 | Inpatient (IN) | payer MEDICAID ==
[~2021-03-10] VITALS: Ht 165.1 cm; Wt 50.8 kg
[2021-03-10] MEDS ORDERED: DEXT 5%/LACTATED RINGERS 1,000 ML IV ONE (21:30)
[2021-03-10 22:56] LABS: BASOPHILS % 0.4 % (0.0-2.0); EOSINOPHILS % 3.4 % (0.0-5.0); HEMATOCRIT. 36.3 % (36.0-48.0); HEMOGLOBIN. 11.9 g/dL (12.0-16.0); LYMPHOCYTES % 30.5 % (20.0-50.0); MEAN CORPUSCULAR HEMOGLOBIN 25.7 pg (28.0-32.0); MEAN CORPUSCULAR VOLUME 78.5 fL (81.0-99.0); MONOCYTES % 10.8 % (2.0-8.0); NEUTROPHILS % 54.9 % (40.0-76.0); RED BLOOD CELL COUNT 4.63 mill/uL (4.2-5.4); RED CELL DISTRIBUTION WIDTH 19.8 % (11.6-14.6)
[2021-03-10 23:06] LABS: CHLORIDE 103 mEq/L (98-107)
[2021-03-10 23:46] LABS: PROTHROMBIN TIME 11.1 sec (9.6-11.0)
[2021-03-10 23:49] LABS: MEAN PLATELET VOLUME 11.7 fl (7.4-10.4)
[2021-03-10 23:50] LABS: PLATELET 126 x1000/uL (130-400)
[2021-03-11 09:30] VITALS: BP 120/65
[2021-03-11 10:00] VITALS: BP 111/60
[2021-03-11 12:00] VITALS: BP 111/60
[2021-03-11] MEDS ORDERED: LIDOCAINE HCL 1% 20ML VIAL (Pyxis) INJ ONE (13:10)
[2021-03-11] MEDS ORDERED: LIDOCAINE HCL 2% JELLY 5ML ONE (13:10)
[2021-03-11] MEDS ORDERED: IOHEXOL-300 50 ML BOTTLE IV ONE (13:19)
[2021-03-11] MEDS ORDERED: ONDANSETRON HCL 4MG/2ML INJ IV PRN (13:45)
[2021-03-11 20:07] VITALS: BP 118/69
[2021-03-11] MEDS ORDERED: QUETIAPINE FUMARATE 50MG TABLET PO SCH (21:00)
[2021-03-11] MEDS ORDERED: SUCRALFATE 1G TABLET PO SCH (21:00)
[2021-03-11] MEDS ORDERED: LURA80TA MT (21:13)
[2021-03-11] MEDS ORDERED: VALP250C3 PO (21:13)
[2021-03-11] MEDS ORDERED: VITAMIN D3 (21:13)
[2021-03-11] MEDS ORDERED: OMEP40CA12 MT (21:13)
[2021-03-11] MEDS ORDERED: CALC-26 MT (21:13)
[2021-03-11] MEDS ORDERED: LURA20TA MT (21:13)
[2021-03-11] MEDS ORDERED: SUCR1TAB MT (21:13)
[2021-03-11] MEDS ORDERED: DOCUSATE SODIUM SUGAR FREE 100MG/10ML UDC NG SCH (21:30)
[2021-03-11] MEDS ORDERED: NON FORMULARY PATIENT HOME MED XX SCH ×2 (21:30)
[2021-03-11] MEDS ORDERED: HYDROXYZINE 10 MG TABLET PO SCH (21:45)
[2021-03-11] MEDS ORDERED: ATORVASTATIN CALCIUM 10MG TABLET PO SCH (22:00)
[2021-03-11] MEDS ORDERED: VALPROIC ACID 250MG CAPSULE PO SCH (22:00)
[2021-03-11] MEDS ORDERED: FERROUS SULFATE 300MG/5ML UDC PO SCH (22:00)
[2021-03-11] MEDS ORDERED: CALCIUM CARBONATE 1250MG TABLET (500MG ELEMENTAL CALCIUM) PO SCH (22:00)
[2021-03-11] MEDS ORDERED: TRAZODONE HCL 50MG TABLET PO SCH (22:00)
[2021-03-11] MEDS ORDERED: VALPROATE SODIUM 250MG/5ML UDC PO SCH (22:30)
[2021-03-11 22:44] VITALS: BP 118/69
[2021-03-12] MEDS ORDERED: PANTOPRAZOLE SODIUM 40 MG/VIAL IV SCH (09:00)
== END 2021-03-12 | disposition home or self-care (01) | DRG 252 ==
LOC: ER 19:59 → 6WST 03-11 00:54 → ENRESERV 03-11 08:07
PROVIDERS: ADMIT Internal Medicine; ATTEND Internal Medicine
PROC: 0D20XUZ Change Feeding Device in Upper Intestinal Tract, External Approach (ICD-10-PCS; principal; 2021-03-11)
DX: K94.23 Gastrostomy malfunction (principal); K22.2 Esophageal obstruction; K44.9 Diaphragmatic hernia without obstruction or gangrene; E03.9 Hypothyroidism, unspecified; Y83.8 Other surgical procedures as the cause of abnormal reaction of the patient, or of later complication, without mention of misadventure at the time of the procedure; Y82.8 Other medical devices associated with adverse incidents; R62.50 Unspecified lack of expected normal physiological development in childhood; Z79.890 Hormone replacement therapy; Z79.899 Other long term (current) drug therapy
CPT/HCPCS: 36415; 36598; 49450; 80053; 82962; 85025; 99285; C1725; C1769; J3490; J7121; Q9967

== ENCOUNTER 2021-05-21 23:15 | Emergency (ER) | payer OTHER, MEDICAID ==
[~2021-05-21] VITALS: Ht 144.8 cm; Wt 41.0 kg
[~2021-05-21 23:15] MED LIST changes: +BISA-81 MT; -BISA10SU62 RC; +CALC-26 MT; -CARI4.5C PO; -CHOL100046 PO; +CYAN50003 PO; -DIVA250T45 PO; -DIVA500T51 PO; +FERR220S6 MT; +GENT5DRO5 EACHEYE; -HYDR-3992 PO; -HYDR50CA PO; +HYDR50SY MT; +IBUP-516 MT; +LURA20TA MT; +LURA80TA MT; +OMEP40CA12 MT; +PROM5SYR PO; +SUCR1TAB MT; +VALP250C3 PO; +VITAMIN D3
[2021-05-22 00:19] VITALS: BP 108/65
== END 2021-05-22 02:54 | disposition home or self-care (01) ==
LOC: ER 23:15
DX: K94.23 Gastrostomy malfunction (principal); E03.9 Hypothyroidism, unspecified; F84.0 Autistic disorder; Y83.3 Surgical operation with formation of external stoma as the cause of abnormal reaction of the patient, or of later complication, without mention of misadventure at the time of the procedure; Y92.018 Other place in single-family (private) house as the place of occurrence of the external cause
CPT/HCPCS: 43762; 99284

== ENCOUNTER 2021-06-03 04:40 | Emergency (ER) | payer MEDICAID, OTHER ==
[~2021-06-03] VITALS: Ht 167.6 cm; Wt 48.0 kg
[2021-06-03] MEDS ORDERED: DIATR MEGLU/DIATRIZOATE SOLN 30ML ONE ×2 (06:15→09:28)
[2021-06-03] MEDS ORDERED: BARIUM SULFATE(VOLUMEN) 450 ML ORAL.SUSP ONE (09:28)
[2021-06-03 09:40] VITALS: BP 112/68
== END 2021-06-03 10:04 | disposition home or self-care (01) ==
LOC: ER 04:40
DX: K94.29 Other complications of gastrostomy (principal); E03.9 Hypothyroidism, unspecified; Y83.3 Surgical operation with formation of external stoma as the cause of abnormal reaction of the patient, or of later complication, without mention of misadventure at the time of the procedure; Y92.018 Other place in single-family (private) house as the place of occurrence of the external cause
CPT/HCPCS: 74018; 99283; Q9963; Z7610

== ENCOUNTER 2021-06-08 20:05 | Emergency (ER) | payer MEDICAID ==
[~2021-06-08] VITALS: Ht 167.6 cm; Wt 43.3 kg
[2021-06-09] MEDS ORDERED: LIDOCAINE HCL/EPINEPHRINE 1%-EPI 1:100,000 20 ML VIAL INFIL ONE (01:45)
[2021-06-09] MEDS ORDERED: BACITRACIN ZINC OINT UDPKT TOP ONE (01:45)
[2021-06-09 03:38] VITALS: BP 116/61
[2021-06-09] MEDS ORDERED: DIATR MEGLU/DIATRIZOATE SOLN 30ML ONE (03:50)
== END 2021-06-09 04:11 | disposition home or self-care (01) ==
LOC: ER 20:05
DX: K94.23 Gastrostomy malfunction (principal); F19.10 Other psychoactive substance abuse, uncomplicated; Z79.899 Other long term (current) drug therapy; Z98.890 Other specified postprocedural states
CPT/HCPCS: 43762; 74018; 99284; J3490; Q9963

== ENCOUNTER 2021-06-20 11:23 | Emergency (ER) | payer MEDICAID ==
[~2021-06-20] VITALS: Ht 160 cm; Wt 44.0 kg
[~2021-06-20 11:23] MED LIST changes: +DOCU-268 PO; -DOCU-272 PO; +IBUP-2778 MT; -IBUP-516 MT; -OMEP40CA12 MT; +OMEP40CA20 MT; -QUET25TA34 PO; +QUET25TA36 PO; -QUET300T19 PO; +QUET300T20 PO
[2021-06-20] MEDS ORDERED: SODIUM CHLORIDE 0.9% 1,000 ML IV ONE (12:00)
[2021-06-20] MEDS ORDERED: LORAZEPAM 2MG/ML CPJ IV ONE (12:45)
[2021-06-20 12:54] LABS: BASOPHILS % 0.3 % (0.0-2.0); EOSINOPHILS % 1.8 % (0.0-5.0); HEMATOCRIT. 36.2 % (36.0-48.0); HEMOGLOBIN. 12.5 g/dL (12.0-16.0); MEAN CORPUSCULAR HEMOGLOBIN 30.4 pg (28.0-32.0); MEAN CORPUSCULAR VOLUME 88.2 fL (81.0-99.0); MEAN PLATELET VOLUME 10.7 fl (7.4-10.4); MONOCYTES % 9.2 % (2.0-8.0); NEUTROPHILS % 63.7 % (40.0-76.0); PLATELET 174 x1000/uL (130-400); RED BLOOD CELL COUNT 4.11 mill/uL (4.2-5.4); RED CELL DISTRIBUTION WIDTH 16.2 % (11.6-14.6)
[2021-06-20 13:00] LABS: CHLORIDE 95 mEq/L (98-107)
[2021-06-20] MEDS ORDERED: IOHEXOL-300 100 ML BOTTLE ONE (14:52)
[2021-06-20 17:33] VITALS: BP 123/73
== END 2021-06-20 17:36 | disposition home or self-care (01) ==
LOC: ER 11:23
DX: Z43.4 Encounter for attention to other artificial openings of digestive tract (principal); K44.9 Diaphragmatic hernia without obstruction or gangrene; F41.9 Anxiety disorder, unspecified; I10 Essential (primary) hypertension; F84.0 Autistic disorder; F79 Unspecified intellectual disabilities
CPT/HCPCS: 36415; 74177; 80053; 83605; 83690; 84484; 85025; 96361; 96374; 99284; J2060; J7030; Q9967

== ENCOUNTER 2022-01-09 09:59 | Emergency (ER) | payer MEDICAID, OTHER ==
[~2022-01-09] VITALS: Ht 152.4 cm; Wt 54.0 kg
[2022-01-09 14:14] LABS: BASOPHILS % 0.5 % (0.0-2.0); EOSINOPHILS % 1.8 % (0.0-5.0); HEMATOCRIT. 41.6 % (36.0-48.0); HEMOGLOBIN. 14.2 g/dL (12.0-16.0); LYMPHOCYTES % 26.4 % (20.0-50.0); MEAN CORPUSCULAR HEMOGLOBIN 30.9 pg (28.0-32.0); MEAN CORPUSCULAR VOLUME 90.8 fL (81.0-99.0); MEAN PLATELET VOLUME 11.2 fl (7.4-10.4); MONOCYTES % 11.8 % (2.0-8.0); NEUTROPHILS % 59.5 % (40.0-76.0); PLATELET 151 x1000/uL (130-400); RED BLOOD CELL COUNT 4.58 mill/uL (4.2-5.4); RED CELL DISTRIBUTION WIDTH 13.6 % (11.6-14.6)
[2022-01-09 14:24] LABS: CHLORIDE 99 mEq/L (98-107)
[2022-01-09 14:25] LABS: PROTHROMBIN TIME 10.9 sec (9.6-11.0)
[2022-01-09 15:00] VITALS: BP 136/69
[2022-01-09] MEDS ORDERED: DIATR MEGLU/DIATRIZOATE SOLN 30ML ONE (16:28)
== END 2022-01-09 17:20 | disposition short-term general hospital (02) ==
LOC: ER 10:07 → CANBEDREQ 16:27 → ER 17:20
DX: Z43.4 Encounter for attention to other artificial openings of digestive tract (principal); E86.0 Dehydration; G80.9 Cerebral palsy, unspecified; I10 Essential (primary) hypertension; F41.9 Anxiety disorder, unspecified; F84.0 Autistic disorder; F79 Unspecified intellectual disabilities; R79.9 Abnormal finding of blood chemistry, unspecified; Z20.822 Contact with and (suspected) exposure to COVID-19
CPT/HCPCS: 36415; 80053; 82962; 85025; 87426; 99283; Q9963; A4315

== ENCOUNTER 2022-05-28 19:59 | Emergency (ER) | payer MEDICAID, OTHER ==
[~2022-05-28] VITALS: Ht 154.9 cm; Wt 54.0 kg
[~2022-05-28 19:59] MED LIST changes: -LURA80TA MT; +LURA80TA2 MT
[2022-05-28 22:20] VITALS: BP 114/78
== END 2022-05-28 22:20 | disposition home or self-care (01) ==
LOC: ER 19:59
DX: S01.81XA Laceration without foreign body of other part of head, initial encounter (principal); G35 Multiple sclerosis; F41.9 Anxiety disorder, unspecified; I10 Essential (primary) hypertension; R62.50 Unspecified lack of expected normal physiological development in childhood; X78.9XXA Intentional self-harm by unspecified sharp object, initial encounter; Y93.9 Activity, unspecified; Y92.9 Unspecified place or not applicable; Z93.1 Gastrostomy status
CPT/HCPCS: 99282; Z7610

== ENCOUNTER 2022-06-01 17:42 | Emergency (ER) | payer OTHER ==
[~2022-06-01] VITALS: Ht 162.6 cm; Wt 58.0 kg
[2022-06-01] MEDS ORDERED: KEFLL21 MT (19:58)
[2022-06-01] MEDS ORDERED: BO1 TP (19:58)
[2022-06-01] MEDS ORDERED: CEPHALEXIN 250MG CAPSULE PO ONE (20:00)
[2022-06-01 20:11] VITALS: BP 114/77
== END 2022-06-01 20:11 | disposition home or self-care (01) ==
LOC: ER 17:42
DX: T81.30XA Disruption of wound, unspecified, initial encounter (principal); X58.XXXA Exposure to other specified factors, initial encounter; F41.9 Anxiety disorder, unspecified; I10 Essential (primary) hypertension; Z98.890 Other specified postprocedural states; Z79.899 Other long term (current) drug therapy
CPT/HCPCS: 99281; 99283

== ENCOUNTER 2022-12-05 17:32 | Inpatient (IN) | payer OTHER ==
[~2022-12-05] VITALS: Ht 170.2 cm; Wt 53.1 kg
[~2022-12-05 17:32] MED LIST changes: +ACET-2708 JT; -BENZ1TAB7 PO; -BISA-81 MT; +BISA-81 RC; +BO1 TP; -CALC-26 MT; +CALC-38 JT; -CALC-696 PO; -CYAN50003 PO; -DOCU-268 PO; +DOCU250C69 JT; +FERR220S6 JT; -FERR220S6 MT; +FOLI-43 JT; -FOLI-43 PO; -GENT5DRO5 EACHEYE; +HYDR10SY11 JT; -HYDR50SY MT; +IBUP-2028 JT; -IBUP-2778 MT; -LACT10SO3 MT; +LEVO-65 JT; -LEVO25TA7 PO; +LEVO50TA8 JT; -LOPE2CAP PO; +LORA-250 JT; -LORA1TAB PO; -LURA20TA MT; +LURA60TA JT; -LURA80TA2 MT; -MAGN800O PO; -NA P133E8 RC; -OMEP40CA20 MT; -ONDA4TAB50 PO; -PANT40TA51 PO; -POLY250017 PO; +PRAV10TA35 JT; -PRAV10TA35 PO; -PROM5SYR PO; -PROT40 MT; +QUET100T JT; +QUET200T JT; -QUET25TA36 PO; -QUET300T20 PO; +QUET400T JT; +RISP1 PO; +SUCR1TAB JT; -SUCR1TAB MT; -TRAZ-251 PO; +TRAZ-252 JT; -VALP250C3 PO; +VALP250S22 JT; +VALP250S5 JT; -VITAMIN D3
[2022-12-05 20:23] LABS: CHLORIDE 97 mEq/L (98-107)
[2022-12-05 23:52] LABS: BASOPHILS % 0.2 % (0.0-2.0); EOSINOPHILS % 3.3 % (0.0-5.0); HEMATOCRIT. 28.2 % (36.0-48.0); HEMOGLOBIN. 9.9 g/dL (12.0-16.0); LYMPHOCYTES % 9.1 % (20.0-50.0); MEAN CORPUSCULAR HEMOGLOBIN 31.8 pg (28.0-32.0); MEAN CORPUSCULAR VOLUME 90.8 fL (81.0-99.0); MEAN PLATELET VOLUME 8.5 fl (7.4-10.4); NEUTROPHILS % 73.4 % (40.0-76.0); PLATELET 284 x1000/uL (130-400); RED BLOOD CELL COUNT 3.11 mill/uL (4.2-5.4); RED CELL DISTRIBUTION WIDTH 13.9 % (11.6-14.6)
[2022-12-06] MEDS ORDERED: IPRATROPIUM/ALBUTEROL 0.5-3(2.5)MG/3ML NEB HHN PRN (11:00)
[2022-12-06] MEDS ORDERED: ONDANSETRON HCL 4MG/2ML INJ IV PRN (11:00)
[2022-12-06] MEDS ORDERED: CLONIDINE 0.1MG TABLET PO PRN (11:00)
[2022-12-06] MEDS ORDERED: DOCUSATE SODIUM 100MG CAPSULE PO PRN (11:00)
[2022-12-06] MEDS ORDERED: ACETAMINOPHEN 325MG TABLET PO PRN ×2 (11:00)
[2022-12-06] MEDS ORDERED: GUAIFENESIN 200MG/10ML SUGAR FREE UDC PO PRN (11:00)
[2022-12-06] MEDS ORDERED: MAGNESIUM/ALUMINUM HYDROXIDE/SIMETHICONE 30ML UDC PO PRN (11:00)
[2022-12-06] MEDS: ENOXAPARIN 40MG/0.4ML SYR SUBCUT SCH (11:56)
[2022-12-06 15:17] LABS: BG BASE EXCESS 0.2 mmol/L (-2.0-2.0); BG CARBOXYHEMOGLOBIN 0.2 % (0.5-1.5); BG FRACTION INSPIRED OXYGEN 40; BG HCO3 ACT 24.2 mmol/L (22.0-26.0); BG METHEMOGLOBIN 0.4 % (0.0-1.5); BG OXYHEMOGLOBIN 96.4 % (94.0-97.0); BG PCO2 36.9 mmHg (35.0-45.0); BG PH 7.435 (7.350-7.450); BG PO2 89.4 mmHg (75.0-100.0); BG SAMPLE SITE RIGHT RADIAL; BG TOTAL HEMOGLOBIN 11.6 g/dL (12.0-18.0); BG VENT MODE MASK - SIMPLE
[2022-12-06 16:32] LABS: CREATINE KINASE 40 IU/L (26-192)
[2022-12-06 20:00] VITALS: BP 108/66
[2022-12-06] MEDS: LORAZEPAM 1MG TABLET JT PRN (23:00)
[2022-12-06] MEDS: FAMOTIDINE 20MG TABLET PO SCH (23:00)
[2022-12-07] VITALS (7 sets, daily range): BP systolic 116–134; BP diastolic 66–76
[2022-12-07 00:15] LABS: CREATINE KINASE 53 IU/L (26-192)
[2022-12-07] MEDS ORDERED: DEXTROSE 50% WATER 50ML SYRINGE IV PRN (01:00)
[2022-12-07] MEDS: BLOOD SUGAR DIAGNOSTIC STRIP TEST SCH ×4 (01:08→17:30)
[2022-12-07] MEDS: INSULIN LISPRO 100 UNITS/ML SUBCUT SCH ×5 (01:08→21:00)
[2022-12-07] MEDS: RISPERIDONE 1MG TABLET PO SCH ×3 (01:09→17:33)
[2022-12-07 07:27] LABS: BASOPHILS % 0.3 % (0.0-2.0); EOSINOPHILS % 5.1 % (0.0-5.0); HEMATOCRIT. 33.2 % (36.0-48.0); HEMOGLOBIN. 11.4 g/dL (12.0-16.0); LYMPHOCYTES % 8.2 % (20.0-50.0); MEAN CORPUSCULAR HEMOGLOBIN 31.2 pg (28.0-32.0); MEAN CORPUSCULAR VOLUME 90.3 fL (81.0-99.0); MEAN PLATELET VOLUME 8.7 fl (7.4-10.4); MONOCYTES % 9.3 % (2.0-8.0); NEUTROPHILS % 77.1 % (40.0-76.0); PLATELET 365 x1000/uL (130-400); RED BLOOD CELL COUNT 3.67 mill/uL (4.2-5.4); RED CELL DISTRIBUTION WIDTH 13.7 % (11.6-14.6)
[2022-12-07 07:36] LABS: CHLORIDE 97 mEq/L (98-107)
[2022-12-07 07:57] LABS: T4 FREE 1.13 ng/dL (0.76-1.46)
[2022-12-07 09:00] LABS: BG BASE EXCESS 1.5 mmol/L (-2.0-2.0); BG DEOXYHEMOGLOBIN 0.8 % (0.0-5.0); BG FRACTION INSPIRED OXYGEN 50; BG HCO3 ACT 25.2 mmol/L (22.0-26.0); BG METHEMOGLOBIN 0.3 % (0.0-1.5); BG OXYGEN SATURATION 99.2 % (92.0-98.5); BG OXYHEMOGLOBIN 98.9 % (94.0-97.0); BG PCO2 36.1 mmHg (35.0-45.0); BG PH 7.461 (7.350-7.450); BG PO2 172.6 mmHg (75.0-100.0); BG SAMPLE SITE RIGHT RADIAL; BG TOTAL HEMOGLOBIN 11.5 g/dL (12.0-18.0); BG VENT MODE MASK - SIMPLE
[2022-12-07] MEDS: LEVOTHYROXINE SODIUM 50MCG TABLET JT SCH (09:41)
[2022-12-07] MEDS: FAMOTIDINE 20MG TABLET PO SCH ×2 (09:41→22:32)
[2022-12-07] MEDS: VALPROATE SODIUM 250MG/5ML UDC JT SCH (09:41)
[2022-12-07 11:41] LABS: CLARITY URINE CLEAR (CLEAR); COLOR URINE DARK YELLOW (YELLOW); KETONES URINE 3+ (NEGATIVE); LEUKOCYTE ESTERASE URINE NEGATIVE (NEGATIVE); NITRITE URINE NEGATIVE (NEGATIVE); OCCULT BLOOD URINE NEGATIVE (NEGATIVE); PH URINE 6.5 (4.5-8.0); PROTEIN URINE NEGATIVE (NEGATIVE); SPECIFIC GRAVITY URINE 1.046 (1.005-1.030)
[2022-12-07 11:55] LABS: *AMPHETAMINES SCREEN URINE NEGATIVE (NEGATIVE); *BARBITURATES SCREEN URINE NEGATIVE (NEGATIVE); *BENZODIAZEPINES SCREEN URINE NEGATIVE (NEGATIVE); *COCAINE SCREEN URINE NEGATIVE (NEGATIVE); CANNABINOID URINE SCREEN NEGATIVE (NEGATIVE); METHADONE URINE SCREEN NEGATIVE (NEGATIVE); OPIATES URINE SCREEN NEGATIVE (NEGATIVE); PHENCYCLIDINE URINE SCREEN NEGATIVE (NEGATIVE)
[2022-12-07] MEDS: ENOXAPARIN 40MG/0.4ML SYR SUBCUT SCH (12:48)
[2022-12-07] MEDS ORDERED: DOCUSATE SODIUM SUGAR FREE 100MG/10ML UDC JT PRN (14:15)
[2022-12-07] MEDS: IPRATROPIUM BROMIDE (0.02%) 0.5MG/2.5ML NEB HHN SCH ×2 (16:21→21:28)
[2022-12-07] MEDS: ALBUTEROL (0.083%) 2.5MG/3ML NEB HHN SCH ×2 (16:22→21:25)
[2022-12-07] MEDS: GUAIFENESIN 200MG/10ML SUGAR FREE UDC PO SCH ×2 (17:33→22:32)
[2022-12-07] MEDS ORDERED: VANCOMYCIN 1.25GM PMX (XELLIA) 250 ML IV NR (20:00)
[2022-12-07] MEDS ORDERED: QUETIAPINE FUMARATE 200MG TABLET JT SCH (21:00)
[2022-12-07] MEDS ORDERED: MEDICATION NOT ON FORMULARY EA (Quetiapine Fumarate (Seroquel) 400 MG) JT SCH (21:00)
[2022-12-07] MEDS ORDERED: PRAVASTATIN SODIUM 10 MG JT SCH (21:00)
[2022-12-07] MEDS ORDERED: MEDICATION NOT ON FORMULARY EA (Trazodone Hcl 100 MG) JT SCH (21:00)
[2022-12-07] MEDS: SODIUM CHLORIDE 0.9% 1,000 ML IV SCH (22:03)
[2022-12-07] MEDS: PIPERACILLIN/TAZOBACTAM 3.375 G in DEXTROSE 5% WATER 50 ML IV SCH (22:03)
[2022-12-07] MEDS: TRAZODONE HCL 50MG TABLET JT SCH (22:32)
[2022-12-07] MEDS: ATORVASTATIN CALCIUM 10MG TABLET JT SCH (22:32)
[2022-12-08 00:09] VITALS: BP 115/59
[2022-12-08] MEDS: ALBUTEROL (0.083%) 2.5MG/3ML NEB HHN SCH ×4 (01:31→21:45)
[2022-12-08] MEDS: IPRATROPIUM BROMIDE (0.02%) 0.5MG/2.5ML NEB HHN SCH ×4 (01:32→21:45)
[2022-12-08 04:17] VITALS: BP 109/63
[2022-12-08] MEDS: GUAIFENESIN 200MG/10ML SUGAR FREE UDC PO SCH ×4 (04:21→23:09)
[2022-12-08] MEDS: PIPERACILLIN/TAZOBACTAM 3.375 G in DEXTROSE 5% WATER 50 ML IV SCH ×3 (05:48→21:16)
[2022-12-08] MEDS: BLOOD SUGAR DIAGNOSTIC STRIP TEST SCH ×4 (06:00→18:11)
[2022-12-08] MEDS: INSULIN LISPRO 100 UNITS/ML SUBCUT SCH ×3 (06:22→18:00)
[2022-12-08 06:38] LABS: BASOPHILS % 0.2 % (0.0-2.0); EOSINOPHILS % 5.1 % (0.0-5.0); HEMATOCRIT. 33.4 % (36.0-48.0); HEMOGLOBIN. 11.2 g/dL (12.0-16.0); LYMPHOCYTES % 9.7 % (20.0-50.0); MEAN CORPUSCULAR HEMOGLOBIN 30.9 pg (28.0-32.0); MEAN CORPUSCULAR VOLUME 92.5 fL (81.0-99.0); MEAN PLATELET VOLUME 8.7 fl (7.4-10.4); MONOCYTES % 11.5 % (2.0-8.0); NEUTROPHILS % 73.5 % (40.0-76.0); PLATELET 357 x1000/uL (130-400); RED BLOOD CELL COUNT 3.62 mill/uL (4.2-5.4); RED CELL DISTRIBUTION WIDTH 14.1 % (11.6-14.6)
[2022-12-08 07:29] LABS: CHLORIDE 106 mEq/L (98-107)
[2022-12-08 07:36] LABS: PHOSPHORUS 3.3 mg/dL (2.5-4.9)
[2022-12-08 08:00] VITALS: BP 104/48
[2022-12-08] MEDS ORDERED: *PATIENT'S OWN MEDICATION STORAGE XX SCH (08:45)
[2022-12-08] MEDS ORDERED: MEDICATION NOT ON FORMULARY EA (Quetiapine Fumarate (Seroquel) 200 MG) JT SCH (09:00)
[2022-12-08] MEDS: VALPROATE SODIUM 250MG/5ML UDC JT SCH ×2 (09:11→21:16)
[2022-12-08] MEDS: ENOXAPARIN 30MG/0.3ML SYR SUBCUT SCH (09:12)
[2022-12-08] MEDS: RISPERIDONE 1MG TABLET PO SCH ×2 (09:13→16:49)
[2022-12-08] MEDS: FAMOTIDINE 20MG TABLET PO SCH ×2 (09:13→21:17)
[2022-12-08] MEDS: LEVOTHYROXINE SODIUM 50MCG TABLET JT SCH (09:13)
[2022-12-08] MEDS: QUETIAPINE FUMARATE 200MG TABLET JT SCH (09:13)
[2022-12-08] MEDS: LATUDA 60 MG JT SCH (09:14)
[2022-12-08] MEDS: SODIUM CHLORIDE 0.9% 1,000 ML IV SCH ×2 (09:16→21:16)
[2022-12-08] MEDS: VANCOMYCIN 750MG PREMIX 150 ML IV SCH ×2 (09:17→21:16)
[2022-12-08] MEDS ORDERED: LOSARTAN POTASSIUM 50 MG TABLET PO SCH (10:15)
[2022-12-08] MEDS: LORAZEPAM 1MG TABLET JT PRN (10:35)
[2022-12-08 12:00] VITALS: BP 112/63
[2022-12-08 13:24] LABS: BG BASE EXCESS 2.2 mmol/L (-2.0-2.0); BG CARBOXYHEMOGLOBIN 0.6 % (0.5-1.5); BG DEOXYHEMOGLOBIN 5.6 % (0.0-5.0); BG FRACTION INSPIRED OXYGEN 21; BG HCO3 ACT 26.2 mmol/L (22.0-26.0); BG METHEMOGLOBIN 0.4 % (0.0-1.5); BG OXYGEN SATURATION 94.3 % (92.0-98.5); BG OXYHEMOGLOBIN 93.4 % (94.0-97.0); BG PCO2 38.6 mmHg (35.0-45.0); BG PH 7.449 (7.350-7.450); BG PO2 67.5 mmHg (75.0-100.0); BG SAMPLE SITE LEFT RADIAL; BG TOTAL HEMOGLOBIN 13.2 g/dL (12.0-18.0); BG VENT MODE ROOM AIR
[2022-12-08 16:00] VITALS: BP 122/69
[2022-12-08] MEDS: BENZTROPINE MESYLATE 1MG TABLET JT SCH (16:49)
[2022-12-08 20:03] VITALS: BP 121/66
[2022-12-08] MEDS: TRAZODONE HCL 50MG TABLET JT SCH (21:16)
[2022-12-08] MEDS: LORAZEPAM 1MG TABLET PO SCH (21:17)
[2022-12-08] MEDS: QUETIAPINE FUMARATE 50MG TABLET JT SCH (21:17)
[2022-12-08] MEDS: ATORVASTATIN CALCIUM 10MG TABLET JT SCH (21:17)
[2022-12-09 00:03] VITALS: BP 93/54
[2022-12-09] MEDS: INSULIN LISPRO 100 UNITS/ML SUBCUT SCH ×5 (00:45→23:17)
[2022-12-09] MEDS: ALBUTEROL (0.083%) 2.5MG/3ML NEB HHN SCH ×3 (01:24→20:58)
[2022-12-09] MEDS: IPRATROPIUM BROMIDE (0.02%) 0.5MG/2.5ML NEB HHN SCH ×3 (01:24→20:58)
[2022-12-09] MEDS: GUAIFENESIN 200MG/10ML SUGAR FREE UDC PO SCH ×4 (04:01→23:16)
[2022-12-09 04:03] VITALS: BP 115/63
[2022-12-09] MEDS: BLOOD SUGAR DIAGNOSTIC STRIP TEST SCH ×5 (05:51→23:16)
[2022-12-09] MEDS: PIPERACILLIN/TAZOBACTAM 3.375 G in DEXTROSE 5% WATER 50 ML IV SCH ×3 (05:51→21:36)
[2022-12-09 07:40] LABS: HEMATOCRIT. 32.4 % (36.0-48.0); HEMOGLOBIN. 11.1 g/dL (12.0-16.0); MEAN CORPUSCULAR HEMOGLOBIN 31.8 pg (28.0-32.0); MEAN CORPUSCULAR VOLUME 92.9 fL (81.0-99.0); MEAN PLATELET VOLUME 8.7 fl (7.4-10.4); PLATELET 323 x1000/uL (130-400); RED BLOOD CELL COUNT 3.49 mill/uL (4.2-5.4); RED CELL DISTRIBUTION WIDTH 14.4 % (11.6-14.6)
[2022-12-09 08:40] VITALS: BP 121/87
[2022-12-09 08:50] LABS: CHLORIDE 95 mEq/L (98-107)
[2022-12-09] MEDS: FAMOTIDINE 20MG TABLET PO SCH ×2 (08:50→21:36)
[2022-12-09] MEDS: QUETIAPINE FUMARATE 200MG TABLET JT SCH (08:50)
[2022-12-09] MEDS: LEVOTHYROXINE SODIUM 50MCG TABLET JT SCH (08:50)
[2022-12-09] MEDS: LATUDA 60 MG JT SCH (08:50)
[2022-12-09] MEDS: RISPERIDONE 1MG TABLET PO SCH ×2 (08:50→18:36)
[2022-12-09] MEDS: FOLIC ACID 1MG TABLET JT SCH (08:50)
[2022-12-09] MEDS: ENOXAPARIN 30MG/0.3ML SYR SUBCUT SCH (08:51)
[2022-12-09] MEDS: BENZTROPINE MESYLATE 1MG TABLET JT SCH ×2 (08:54→18:36)
[2022-12-09 09:01] LABS: PHOSPHORUS 3.2 mg/dL (2.5-4.9)
[2022-12-09] MEDS: VANCOMYCIN 750MG PREMIX 150 ML IV SCH ×2 (10:42→18:36)
[2022-12-09] MEDS: SODIUM CHLORIDE 0.9% 1,000 ML IV SCH ×2 (10:42→23:50)
[2022-12-09 11:47] VITALS: BP 139/66
[2022-12-09 15:55] VITALS: BP 131/70
[2022-12-09 20:00] VITALS: BP 117/69
[2022-12-09] MEDS: LORAZEPAM 1MG TABLET PO SCH (21:00)
[2022-12-09] MEDS: QUETIAPINE FUMARATE 50MG TABLET JT SCH (21:36)
[2022-12-09] MEDS: TRAZODONE HCL 50MG TABLET JT SCH (21:36)
[2022-12-09] MEDS: ATORVASTATIN CALCIUM 10MG TABLET JT SCH (21:36)
[2022-12-09] MEDS: VALPROATE SODIUM 250MG/5ML UDC JT SCH (21:37)
[2022-12-09 22:01] LABS: PLATELET ESTIMATE NORMAL
[2022-12-10] VITALS: BP 101/57
[2022-12-10] MEDS: VANCOMYCIN 750MG PREMIX 150 ML IV SCH ×2 (02:01→09:41)
[2022-12-10] MEDS: ALBUTEROL (0.083%) 2.5MG/3ML NEB HHN SCH ×3 (02:44→15:08)
[2022-12-10] MEDS: IPRATROPIUM BROMIDE (0.02%) 0.5MG/2.5ML NEB HHN SCH ×3 (02:44→15:08)
[2022-12-10 04:00] VITALS: BP 105/83
[2022-12-10] MEDS: GUAIFENESIN 200MG/10ML SUGAR FREE UDC PO SCH ×2 (05:42→09:40)
[2022-12-10] MEDS: PIPERACILLIN/TAZOBACTAM 3.375 G in DEXTROSE 5% WATER 50 ML IV SCH ×2 (05:43→13:52)
[2022-12-10] MEDS: BLOOD SUGAR DIAGNOSTIC STRIP TEST SCH ×2 (05:43→12:15)
[2022-12-10] MEDS: INSULIN LISPRO 100 UNITS/ML SUBCUT SCH ×2 (06:00→12:00)
[2022-12-10 06:53] LABS: HEMATOCRIT. 34.7 % (36.0-48.0); HEMOGLOBIN. 11.7 g/dL (12.0-16.0); MEAN CORPUSCULAR HEMOGLOBIN 30.7 pg (28.0-32.0); MEAN CORPUSCULAR VOLUME 91.1 fL (81.0-99.0); MEAN PLATELET VOLUME 8.5 fl (7.4-10.4); PLATELET 373 x1000/uL (130-400); RED BLOOD CELL COUNT 3.81 mill/uL (4.2-5.4); RED CELL DISTRIBUTION WIDTH 14.2 % (11.6-14.6)
[2022-12-10 08:00] VITALS: BP 102/61
[2022-12-10] MEDS: RISPERIDONE 1MG TABLET PO SCH (08:27)
[2022-12-10] MEDS: QUETIAPINE FUMARATE 200MG TABLET JT SCH (08:27)
[2022-12-10] MEDS: BENZTROPINE MESYLATE 1MG TABLET JT SCH (08:27)
[2022-12-10] MEDS: FOLIC ACID 1MG TABLET JT SCH (08:27)
[2022-12-10] MEDS: LEVOTHYROXINE SODIUM 50MCG TABLET JT SCH (08:27)
[2022-12-10] MEDS: LATUDA 60 MG JT SCH (08:29)
[2022-12-10] MEDS: FAMOTIDINE 20MG TABLET PO SCH (08:36)
[2022-12-10] MEDS: ENOXAPARIN 30MG/0.3ML SYR SUBCUT SCH (08:36)
[2022-12-10 09:14] LABS: CHLORIDE 96 mEq/L (98-107)
[2022-12-10 09:27] LABS: PHOSPHORUS 3.4 mg/dL (2.5-4.9)
[2022-12-10] MEDS ORDERED: SULF1TAB48 JT ×3 (10:17→14:20)
[2022-12-10] MEDS ORDERED: GUAI-1268 JT ×3 (10:19→14:20)
[2022-12-10 12:00] VITALS: BP 99/60
[2022-12-10 14:35] VITALS: BP 99/60
[2022-12-10 18:41] LABS: PLATELET ESTIMATE NORMAL
== END 2022-12-10 15:30 | disposition home health service (06) | DRG 137 ==
LOC: ER 17:41 → EDBEDREQTM 23:55 → EDBEDREQ 23:55 → 3WST 12-06 11:04 → CANRESERV 12-06 16:40 → ENRESERV 12-06 16:40
PROVIDERS: ADMIT Internal Medicine; ATTEND Internal Medicine
DX: J69.0 Pneumonitis due to inhalation of food and vomit (principal); J96.01 Acute respiratory failure with hypoxia; G93.40 Encephalopathy, unspecified; E43 Unspecified severe protein-calorie malnutrition; K22.2 Esophageal obstruction; E86.1 Hypovolemia; E87.1 Hypo-osmolality and hyponatremia; J44.0 Chronic obstructive pulmonary disease with (acute) lower respiratory infection; F84.0 Autistic disorder; D64.9 Anemia, unspecified; E03.9 Hypothyroidism, unspecified; I10 Essential (primary) hypertension; K44.9 Diaphragmatic hernia without obstruction or gangrene; K59.00 Constipation, unspecified; F41.9 Anxiety disorder, unspecified; Z68.1 Body mass index [BMI] 19.9 or less, adult; Z79.899 Other long term (current) drug therapy; Z87.01 Personal history of pneumonia (recurrent); Z93.4 Other artificial openings of gastrointestinal tract status
CPT/HCPCS: 36415; 36600; 71045; 71275; 80053; 80202; 80305; 81003; 82375; 82550; 82805; 82962; 83036; 83605; 83735; 83880; 84100; 84145; 84439; 84443; 84484; 85025; 85379; 93005; 93970; 94640; 99291; J1650; J1815; J2543; J3370; J7030; J7060

== ENCOUNTER 2022-12-16 11:57 | Emergency (ER) | payer OTHER ==
[~2022-12-16] VITALS: Ht 147.3 cm; Wt 44.0 kg
[~2022-12-16 11:57] MED LIST changes: +GUAI-1268 JT; -LEVO-65 JT; -QUET100T JT; +SULF1TAB48 JT; -VALP250S5 JT
[2022-12-16 12:54] LABS: BASOPHILS % 0.3 % (0.0-2.0); EOSINOPHILS % 0.3 % (0.0-5.0); HEMATOCRIT. 35.5 % (36.0-48.0); HEMOGLOBIN. 11.9 g/dL (12.0-16.0); LYMPHOCYTES % 14.5 % (20.0-50.0); MEAN CORPUSCULAR HEMOGLOBIN 30.2 pg (28.0-32.0); MEAN PLATELET VOLUME 9.7 fl (7.4-10.4); MONOCYTES % 8.4 % (2.0-8.0); NEUTROPHILS % 76.5 % (40.0-76.0); PLATELET 241 x1000/uL (130-400); RED BLOOD CELL COUNT 3.94 mill/uL (4.2-5.4); RED CELL DISTRIBUTION WIDTH 14.5 % (11.6-14.6)
[2022-12-16 13:07] LABS: CHLORIDE 95 mEq/L (98-107)
[2022-12-16] MEDS ORDERED: NIRM1TAB4 PO (21:58)
[2022-12-16] MEDS ORDERED: ONDA4TAB50 MT (21:58)
[2022-12-16] MEDS ORDERED: ACET-2708 MT ×2 (21:59)
[2022-12-16 22:12] VITALS: BP 116/72
== END 2022-12-16 22:13 | disposition short-term general hospital (02) ==
LOC: ER 12:03
DX: U07.1 COVID-19 (principal); E86.0 Dehydration; I10 Essential (primary) hypertension; Z98.890 Other specified postprocedural states; Z79.899 Other long term (current) drug therapy
CPT/HCPCS: 36415; 71045; 80053; 82533; 83930; 84443; 85025; 87426; 99285; C9803; Z7610

== ENCOUNTER 2024-11-10 10:38 | Inpatient (IN) | payer MEDICAID, OTHER ==
[~2024-11-10] VITALS: Ht 165.1 cm; Wt 46.7 kg
[~2024-11-10 10:38] MED LIST changes: +ACET-2708 MT; +DOCU-405 JT; -DOCU250C69 JT; -FERR220S6 JT; +FERR220S9 JT; -HYDR10SY11 JT; +HYDR10SY16 JT; +NIRM1TAB4 PO; +ONDA4TAB50 MT
[2024-11-10 11:42] LABS: BASOPHILS % 0.4 % (0.0-2.0); DIFFERENTIAL COMMENT 0; HEMATOCRIT. 37.4 % (36.0-48.0); HEMOGLOBIN. 12.7 g/dL (12.0-16.0); LYMPHOCYTES % 14.2 % (20.0-50.0); MEAN CORPUSCULAR HEMOGLOBIN 32.7 pg (28.0-32.0); MEAN CORPUSCULAR HGB CONC 33.9 g/dL (31.0-37.0); MEAN CORPUSCULAR VOLUME 96.2 fL (81.0-99.0); MEAN PLATELET VOLUME 12.3 fl (7.4-10.4); MONOCYTES % 13.5 % (2.0-8.0); NEUTROPHILS % 71.9 % (40.0-76.0); PLATELET 75 x1000/uL (130-400); RED BLOOD CELL COUNT 3.89 mill/uL (4.2-5.4); RED CELL DISTRIBUTION WIDTH 13.3 % (11.6-14.6); WHITE BLOOD COUNT 7.9 x1000/uL (4.5-11.0)
[2024-11-10 11:49] LABS: CHLORIDE 95 mEq/L (98-107); SODIUM 128 mEq/L (136-145)
[2024-11-10 11:50] LABS: CALCIUM 8.7 mg/dL (8.7-10.4); CARBON DIOXIDE 24 mEq/L (21-32)
[2024-11-10 11:55] LABS: CREATININE 0.7 mg/dL (0.6-1.0); GLUCOSE 92 mg/dL (70-105); UREA NITROGEN BLOOD 11 mg/dL (9-23)
[2024-11-10 12:13] LABS: TROPONIN I HIGH SENSITIVITY < 4 ng/L (3.0-34)
[2024-11-10] MEDS: SODIUM CHLORIDE 0.9% 1,000 ML IV NR (13:23)
[2024-11-10] MEDS: ACETAMINOPHEN 500MG TABLET PO NR (13:38)
[2024-11-10 20:13] VITALS: BP_SYST 110; BP_SYST 127; BP_DIAS 58; BP_DIAS 59; PULSE 86; PULSE 88; RESP 18; RESP 20; TEMP 36.7; TEMP 37.1; O2SAT 97
[2024-11-10] MEDS ORDERED: POLYETHYLENE GLYCOL 3350 (17GM) 1 DOSE PACK PO SCH (23:45)
[2024-11-10] MEDS ORDERED: LORAZEPAM 1MG TABLET PO PRN (23:45)
[2024-11-10] MEDS ORDERED: IPRATROPIUM/ALBUTEROL 0.5-3(2.5)MG/3ML NEB HHN PRN (23:45)
[2024-11-11] VITALS: BP 110/59; PULSE 88; RESP 20; TEMP 36.8; O2SAT 96
[2024-11-11] MEDS ORDERED: ACETAMINOPHEN 650MG/20.3ML UDC JT PRN (01:00)
[2024-11-11 04:00] VITALS: BP 112/62; PULSE 78; RESP 19; TEMP 36.7; O2SAT 97
[2024-11-11] MEDS: LEVOTHYROXINE SODIUM 50MCG TABLET PO SCH (06:04)
[2024-11-11] MEDS ORDERED: DEXTROSE 50% WATER 50ML SYRINGE IV PRN (06:15)
[2024-11-11] MEDS: INSULIN LISPRO 100 UNITS/ML SUBCUT SCH (06:29)
[2024-11-11] MEDS: BLOOD SUGAR DIAGNOSTIC STRIP TEST SCH (06:29)
[2024-11-11 08:00] VITALS: BP 97/55; PULSE 95; RESP 18; TEMP 36.2; O2SAT 98
[2024-11-11] MEDS: RISPERIDONE 1MG TABLET PO SCH (08:05)
[2024-11-11] MEDS: QUETIAPINE FUMARATE 50MG TABLET PO SCH (08:05)
[2024-11-11] MEDS: BENZTROPINE MESYLATE 1MG TABLET PO SCH (08:07)
[2024-11-11] MEDS: VALPROATE SODIUM 250MG/5ML UDC PO SCH (08:07)
[2024-11-11] MEDS: FOLIC ACID 1MG TABLET PO SCH (08:11)
[2024-11-11] MEDS: CEFTRIAXONE 1GM/50ML 50 ML IV SCH (11:53)
[2024-11-11 12:00] VITALS: BP 91/45; PULSE 86; RESP 18; TEMP 36.3; O2SAT 98
[2024-11-11 13:20] LABS: HEMATOCRIT. 39.8 % (36.0-48.0); HEMOGLOBIN. 13.3 g/dL (12.0-16.0); MEAN CORPUSCULAR HEMOGLOBIN 31.8 pg (28.0-32.0); MEAN CORPUSCULAR HGB CONC 33.5 g/dL (31.0-37.0); RED BLOOD CELL COUNT 4.19 mill/uL (4.2-5.4); RED CELL DISTRIBUTION WIDTH 13.2 % (11.6-14.6)
[2024-11-11 13:26] LABS: CARBON DIOXIDE 26 mEq/L (21-32); CHLORIDE 102 mEq/L (98-107); POTASSIUM 3.7 mEq/L (3.5-5.1); SODIUM 136 mEq/L (136-145)
[2024-11-11 13:28] LABS: CALCIUM 8.5 mg/dL (8.7-10.4)
[2024-11-11 13:32] LABS: CREATININE 0.6 mg/dL (0.6-1.0); GLUCOSE 125 mg/dL (70-105)
[2024-11-11 13:33] LABS: THYROID STIMULATING HORMONE 4.05 uIU/mL (0.55-4.78); UREA NITROGEN BLOOD 8 mg/dL (9-23)
[2024-11-11 14:15] LABS: DIFFERENTIAL COMMENT 1
[2024-11-11 16:00] VITALS: BP 115/66; PULSE 90; RESP 18; TEMP 36.2; O2SAT 98
[2024-11-11] MEDS ORDERED: LEVO-65 MT (16:00)
[2024-11-11 17:16] VITALS: BP 115/66; PULSE 90; TEMP 97.1; O2SAT 99
[2024-11-11] MEDS ORDERED: ATORVASTATIN CALCIUM 10MG TABLET PO SCH (21:00)
[2024-11-11] MEDS ORDERED: TRAZODONE HCL 50MG TABLET PO SCH (21:00)
[2024-11-12 16:37] LABS: MEAN PLATELET VOLUME 12.9 fl (7.4-10.4); PLATELET 61 x1000/uL (130-400)
[2024-11-12 16:39] LABS: PLATELET ESTIMATE DECREASED
== END 2024-11-11 18:00 | disposition home or self-care (01) | DRG 254 ==
LOC: ER 10:38 → 7EST 13:47
PROVIDERS: ADMIT Internal Medicine; ATTEND Internal Medicine
DX: R13.10 Dysphagia, unspecified (principal); R65.10 Systemic inflammatory response syndrome (SIRS) of non-infectious origin without acute organ dysfunction; F41.9 Anxiety disorder, unspecified; Z20.822 Contact with and (suspected) exposure to COVID-19; F84.0 Autistic disorder; G80.9 Cerebral palsy, unspecified; I10 Essential (primary) hypertension; Z79.899 Other long term (current) drug therapy
CPT/HCPCS: 36415; 71045; 80048; 82962; 83036; 84443; 84484; 85025; 87426; 87804; 99285; J0696

== ENCOUNTER 2025-01-28 15:49 | Emergency (ER) | payer OTHER ==
[~2025-01-28] VITALS: Ht 167.6 cm; Wt 48.0 kg
[~2025-01-28 15:49] MED LIST changes: +LEVO-65 MT
[2025-01-28 15:53] VITALS: O2SAT 97
[2025-01-28] MEDS: SODIUM CHLORIDE 0.9% 1,000 ML IV ONE ×2 (16:48→17:20)
[2025-01-28 16:59] LABS: HEMATOCRIT. 46.3 % (36.0-48.0); HEMOGLOBIN. 15.1 g/dL (12.0-16.0); MEAN CORPUSCULAR HEMOGLOBIN 31.6 pg (28.0-32.0); MEAN CORPUSCULAR HGB CONC 32.5 g/dL (31.0-37.0); MEAN CORPUSCULAR VOLUME 97.2 fL (81.0-99.0); MEAN PLATELET VOLUME 12.5 fl (7.4-10.4); PLATELET 89 x1000/uL (130-400); RED BLOOD CELL COUNT 4.77 mill/uL (4.2-5.4); RED CELL DISTRIBUTION WIDTH 13.7 % (11.6-14.6); WHITE BLOOD COUNT 10.3 x1000/uL (4.5-11.0)
[2025-01-28 17:01] LABS: DIFFERENTIAL COMMENT 1
[2025-01-28 17:06] LABS: CHLORIDE 105 mEq/L (98-107); POTASSIUM 4.7 mEq/L (3.5-5.1); SODIUM 139 mEq/L (136-145)
[2025-01-28 17:07] LABS: CALCIUM 9.8 mg/dL (8.7-10.4); CARBON DIOXIDE 24 mEq/L (21-32)
[2025-01-28 17:12] LABS: CREATININE 0.8 mg/dL (0.6-1.0); GLUCOSE 131 mg/dL (70-105); UREA NITROGEN BLOOD 10 mg/dL (9-23)
[2025-01-28 17:14] LABS: ALANINE AMINOTRANSFERASE < 7 IU/L (10-49); ALBUMIN 3.9 g/dL (3.2-4.8); ASPARTATE AMINOTRANSFERASE 20 IU/L (<34); BILIRUBIN DIRECT 0.2 mg/dL (<=3.0); BILIRUBIN TOTAL 0.5 mg/dL (0.1-1.0); PROTEIN TOTAL 7.4 g/dL (6.0-8.3); TROPONIN I HIGH SENSITIVITY < 4 ng/L (3.0-34)
[2025-01-28 17:40] LABS: CLARITY URINE CLOUDY (CLEAR); COLOR URINE DARK YELLOW (YELLOW); GLUCOSE URINE NEGATIVE (NEGATIVE); KETONES URINE TRACE (NEGATIVE); LEUKOCYTE ESTERASE URINE 2+ (NEGATIVE); NITRITE URINE POSITIVE (NEGATIVE); OCCULT BLOOD URINE 1+ (NEGATIVE); PH URINE 6.5 (4.5-8.0); PROTEIN URINE 2+ (NEGATIVE); SPECIFIC GRAVITY URINE 1.026 (1.005-1.030)
[2025-01-28 17:55] LABS: PLATELET ESTIMATE DECREASED
[2025-01-28 17:56] LABS: GIANT PLATELETS FEW
[2025-01-28 18:04] LABS: BACTERIA URINE 4+; SQUAMOUS EPITHELIAL CELL URINE 1+ /lpf (RARE/1+)
[2025-01-28] MEDS: CEFTRIAXONE 1GM/50ML 50 ML IV NR (18:44)
[2025-01-28] MEDS: ACETAMINOPHEN 500MG TABLET PO NR (20:34)
[2025-01-28 22:02] VITALS: BP 137/65; PULSE 109; RESP 18; TEMP 37.7; O2SAT 97
== END 2025-01-28 22:32 | disposition admitted as inpatient to this hospital (09) ==
LOC: ER 15:49 → CANBEDREQ 18:28 → ER 22:32
DX: R55 Syncope and collapse (principal); N39.0 Urinary tract infection, site not specified; I10 Essential (primary) hypertension; F84.0 Autistic disorder; F41.9 Anxiety disorder, unspecified; Z79.890 Hormone replacement therapy; Z79.899 Other long term (current) drug therapy
CPT/HCPCS: 99285; 96365; 96361; 71045; 96366; 80076; 80048; 81003; 85025; 87086; 87186; 84484; 87077; 36415; J0696; J7030